=== PATIENT | male | born 1990 | race Caucasian/White ===

== ENCOUNTER 2019-05-23 03:28 | Emergency (ER) | payer SELFPAY ==
[~2019-05-23] VITALS: Ht 182.8 cm; Wt 138.6 kg
[~2019-05-23 03:28] MED LIST: AGM875T PO; FAMO-106 PO; FAMO20TA5 PO; LANS15CA PO; NAPR-243 PO; ONDA-42 SL; PRD20T PO; RNT150T PO; SUCR1TAB PO; SULF1TAB38 PO
[2019-05-23] MEDS ORDERED: RX-ONDANSETRON 4 MG ODT (ZOFRAN) PPK #4 PO STA (04:24)
[2019-05-23] MEDS ORDERED: ONDA4TAB11 PO (04:30)
--- NOTE | 2019-05-23 04:31 | ED Abdominal Pain ---
General Chief Complaint: Abdominal/GI Problems Stated Complaint: NAUSEA,FLUSHED,LIGHT HEADED,VOMITING Source of Information: Patient Exam Limitations: No Limitations History of Present Illness Date Seen by Provider: May 23, 2019 Time Seen by Provider: 04:14 Initial Comments Patient presents ER by private conveyance from work with chief complaint that about 2:00 in the morning he and some other coworkers ate some pizza from [employer] and within an hour or so all became sick with nausea vomiting and diarrhea. He was unable to complete his shift so his boss sent him here. Denies history of abdominal surgeries or scopes. He was told the past that he had GERD and possibly an ulcer but he did not complete the upper endoscopy. He is not having any fevers or chills. Allergies and Home Medications Allergies Coded Allergies: No Known Drug Allergies (Unverified , 02/03/11) Home Medications Lansoprazole 15 Mg Capsule., Unknown Dose PO DAILY, (Reported) Patient Home Medication List Home Medication List Reviewed: Yes Review of Systems Review of Systems Constitutional: No chills, No diaphoresis EENTM: No Blurred Vision, No Double Vision Respiratory: Denies Cough, Denies Orthopnea Cardiovascular: Denies Chest Pain, Denies Edema Gastrointestinal: See HPI; Denies Abdomen Distended; Abdominal Pain Genitourinary: Denies Burning, Denies Discharge Musculoskeletal: No back pain, No joint pain All Other Systems Reviewed Negative Unless Noted: Yes Past Pqfbokf-Gbdprg-Agtzeh Hx Patient Social History Alcohol Use: Occasionally Uses Recreational Drug Use: No Smoking Status: Current Everyday Smoker Recent Foreign Travel: No Contact w/Someone Who Travel: No Recent Hopitalizations: No Seasonal Allergies Seasonal Allergies: No Past Medical History Surgeries: No Orthopedic Respiratory: Yes Asthma Cardiac: No Neurological: No Genitourinary: No Gastrointestinal: Yes Gastroesophageal Reflux, Ulcer Musculoskeletal: Yes (CHRONIC LEFT KNEE PAIN) Endocrine: No Cancer: No Psychosocial: No Integumentary: No Blood Disorders: No Adverse Reaction/Blood Tranf: No Physical Exam Vital Signs Capillary Refill : Height/Weight/BMI Height: 6'0" Weight: 260lbs. oz. 117.646971io; BMI Method:Stated General Appearance: WD/WN, no apparent distress HEENT: PERRL/EOMI, pharynx normal Neck: full range of motion, normal inspection Respiratory: lungs clear, normal breath sounds, no respiratory distress, no accessory muscle use Cardiovascular: normal peripheral pulses, regular rate, rhythm Peripheral Pulses: 2+ Radial Pulses (R), 2+ Radial Pulses (L) Gastrointestinal: normal bowel sounds, non tender, soft, no organomegaly Neurologic/Psychiatric: alert, normal mood/affect, oriented x 3 Skin: normal color, warm/dry Progress/Results/Core Measures Results/Orders My Orders Orders - DICK MAIN Rx-Ondansetron Po (Rx-Zofran Po) (05/23/19 04:24) Progress Progress Note : Time: 04:27 Progress Note 3 people in eating the same food with similar symptoms all within an hour of eating the food sounds like it could be a preformed toxin. We offered to give him an IV, labs fluid for what sounds like potentially food poisoning. He declined and just wants some Zofran and a note to go home. He says he has antacids there that he can take. Departure Impression Primary Impression: Gastroenteritis and colitis, toxic Disposition: 01 HOME, SELF-CARE Condition: Stable Departure-Patient Inst. Decision time for Depature: 04:29 Referrals: NO,LOCAL PHYSICIAN (PCP/Family) Primary Care Physician Patient Instructions: Food Poisoning (DC) Add. Discharge Instructions: Typically does not last more than a day maybe 2. Left the diarrhea go. Drink lots of fluid. Ondansetron one tablet under the tongue every 6 hours as needed for nausea or vomiting. Return to work Saturday. All discharge instructions reviewed with patient and/or family. Voiced understanding. Scripts Ondansetron (Ondansetron Odt) 4 Mg Tab.rapdis 4 MG PO Q6H PRN for NAUSEA/VOMITING, #8 TAB 0 Refills Prov: DICK MAIN 05/23/19 Work/School Note: Work Release Form Date Seen in the Emergency Department: May 23, 2019 Return to Work: May 25, 2019 Restrictions: No Restrictions DICK MAIN May 23, 2019 04:31
[2019-05-23 04:43] VITALS: BP 154/103
== END 2019-05-23 04:44 | disposition home or self-care (01) ==
LOC: EDUNIT# 03:28 → ER 03:31
DX: A05.9 Bacterial foodborne intoxication, unspecified (principal); K52.1 Toxic gastroenteritis and colitis; K21.9 Gastro-esophageal reflux disease without esophagitis; F17.200 Nicotine dependence, unspecified, uncomplicated
CPT/HCPCS: 99283

== ENCOUNTER 2019-06-30 07:53 | Emergency (ER) | payer SELFPAY ==
[~2019-06-30] VITALS: Ht 182.8 cm; Wt 138.3 kg
[~2019-06-30 07:53] MED LIST changes: +ONDA4TAB11 PO
[2019-06-30 08:00] VITALS: BP 162/125
[2019-06-30] MEDS ORDERED: ANTACID SUSP 30 ML UDC (MYLANTA) ONE (08:09)
[2019-06-30] MEDS ORDERED: LIDOCAINE 2% VISCOUS 15 ML UDC ONE (08:10)
[2019-06-30] MEDS ORDERED: ANTACID SUSP 30 ML UDC (MYLANTA) PO ONE (08:15)
[2019-06-30] MEDS ORDERED: LIDOCAINE 2% VISCOUS 15 ML UDC PO ONE (08:15)
--- NOTE | 2019-06-30 08:42 | ED Chest Pain ---
General Chief Complaint: Cough/Cold/Flu Symptoms Stated Complaint: COUGH;CHEST CONGESTION Nursing Triage Note: pt amb to rm 10 with complaint of cough, chest tightness for one week. denies fever and sore throat. Nursing Sepsis Screen: No Definite Risk Source: patient Exam Limitations: no limitations History of Present Illness Date Seen by Provider: Jun 30, 2019 Time Seen by Provider: 08:01 Initial Comments This 29-year-old young man presents to the emergency room with complaints of chest pressure and tightness for the past week. The discomfort is constant and seems to be worse when he lies down at night. He is a smoker and has a chronic dry smoker's cough which has not increased. He denies any fever or shortness of breath. Pain is not worse with deep breathing or with exertion. He has no lower extremity symptoms. He does have history of GERD and takes omeprazole daily. He informs the nurse during triage that his heart rate will be high because he is anxious. Allergies and Home Medications Allergies Coded Allergies: No Known Drug Allergies (Unverified , 02/03/11) Home Medications Albuterol Sulfate 1 Puff Puff, 2 PUFF IH Q4H PRN for SHORTNESS OF BREATH 1 PUFF = 90 MCG Prescribed by: DANUTA MARLOW on 06/30/19 1036 Lansoprazole 15 Mg Capsule., Unknown Dose PO DAILY, (Reported) Ondansetron 4 Mg Tab.rapdis, 4 MG PO Q6H PRN for NAUSEA/VOMITING Prescribed by: DICK MAIN on 05/23/19 0430 Patient Home Medication List Home Medication List Reviewed: Yes Review of Systems Review of Systems Constitutional: no symptoms reported EENTM: No Symptoms Reported Respiratory: See HPI Cardiovascular: See HPI Gastrointestinal: No Symptoms Reported Genitourinary: No Symptoms Reported Musculoskeletal: no symptoms reported Skin: no symptoms reported Psychiatric/Neurological: No Symptoms Reported Endocrine: No Symptoms Reported Hematologic/Lymphatic: No Symptoms Reported Past Tjajopa-Wxcorv-Xbmpzq Hx Past Med/Social Hx: Reviewed Nursing Past Med/Soc Hx Patient Social History Alcohol Use: Occasionally Uses Recreational Drug Use: No (SMOKES 1/2 PPD) Smoking Status: Current Everyday Smoker Recent Foreign Travel: No Contact w/Someone Who Travel: No Recent Infectious Disease Expo: No Recent Hopitalizations: No Immunizations Up To Date Tetanus Booster (TDap): Unknown PED Vaccines UTD: Yes Seasonal Allergies Seasonal Allergies: No Past Medical History Surgeries: Yes Orthopedic Respiratory: Yes Asthma Cardiac: No Neurological: No Genitourinary: No Gastrointestinal: Yes Gastroesophageal Reflux, Ulcer Musculoskeletal: Yes (CHRONIC LEFT KNEE PAIN) Endocrine: No Cancer: No Psychosocial: No Integumentary: No Blood Disorders: No Adverse Reaction/Blood Tranf: No Physical Exam Vital Signs Vital Signs - First Documented Capillary Refill : Less Than 3 Seconds Height, Weight, BMI Height: 6'0" Weight: 260lbs. oz. 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 Norm as Tested, Other (anxious) Skin: Normal Color, Warm/Dry Progress/Results/Core Measures Results/Orders Lab Results Laboratory Tests Test 06/30/19 09:28 Range/Units White Blood Count 10.1 4.3-11.0 10^3/uL Red Blood Count 4.82 4.35-5.85 10^6/uL Hemoglobin 13.6 13.3-17.7 G/DL Hematocrit 42 40-54 % Mean Corpuscular Volume 87 80-99 FL Mean Corpuscular Hemoglobin 28 25-34 PG Mean Corpuscular Hemoglobin Concent 33 32-36 G/DL Red Cell Distribution Width 15.3 H 10.0-14.5 % Platelet Count 346 130-400 10^3/uL Mean Platelet Volume 8.7 7.4-10.4 FL Neutrophils (%) (Auto) 63 42-75 % Lymphocytes (%) (Auto) 25 12-44 % Monocytes (%) (Auto) 10 0-12 % Eosinophils (%) (Auto) 2 0-10 % Basophils (%) (Auto) 0 0-10 % Neutrophils # (Auto) 6.4 1.8-7.8 X 10^3 Lymphocytes # (Auto) 2.5 1.0-4.0 X 10^3 Monocytes # (Auto) 1.0 0.0-1.0 X 10^3 Eosinophils # (Auto) 0.2 0.0-0.3 10^3/uL Basophils # (Auto) 0.0 0.0-0.1 10^3/uL Prothrombin Time 13.1 12.2-14.7 SEC INR Comment 1.0 0.8-1.4 Activated Partial Thromboplast Time 27 24-35 SEC Sodium Level 137 135-145 MMOL/L Potassium Level 3.6 3.6-5.0 MMOL/L Chloride Level 100 98-107 MMOL/L Carbon Dioxide Level 20 L 21-32 MMOL/L Anion Gap 17 H 5-14 MMOL/L Blood Urea Nitrogen 9 7-18 MG/DL Creatinine 0.86 0.60-1.30 MG/DL Estimat Glomerular Filtration Rate > 60 BUN/Creatinine Ratio 10 Glucose Level 123 H 70-105 MG/DL Calcium Level 8.9 8.5-10.1 MG/DL Corrected Calcium 8.5 8.5-10.1 MG/DL Magnesium Level 1.9 1.6-2.4 MG/DL Total Bilirubin 0.4 0.1-1.0 MG/DL Aspartate Amino Transf (AST/SGOT) 33 5-34 U/L Alanine Aminotransferase (ALT/SGPT) 58 H 0-55 U/L Alkaline Phosphatase 68 40-136 U/L Myoglobin 22.3 10.0-92.0 NG/ML Troponin I < 0.028 <0.028 NG/ML Total Protein 7.8 6.4-8.2 GM/DL Albumin 4.5 3.2-4.5 GM/DL My Orders Orders - DANUTA ARROYO MD Lidocaine 2% Viscous 15 Ml (Xylocaine Vi (06/30/19 08:15) Antacid Suspension (Mylanta Suspension (06/30/19 08:15) Antacid Suspension (Mylanta Suspension (06/30/19 08:09) Lidocaine 2% Viscous 15 Ml (Xylocaine Vi (06/30/19 08:10) Cbc With Automated Diff (06/30/19 08:42) Magnesium (06/30/19 08:42) Chest 1 View, Ap/Pa Only (06/30/19 08:42) Ekg Tracing (06/30/19 08:42) Comprehensive Metabolic Panel (06/30/19 08:42) Myoglobin Serum (06/30/19 08:42) Protime With Inr (06/30/19 08:42) Partial Thromboplastin Time (06/30/19 08:42) O2 (06/30/19 08:42) Monitor-Rhythm Ecg Trace Only (06/30/19 08:42) Ed Iv/Invasive Line Start (06/30/19 08:42) Troponin I (06/30/19 08:42) Medications Given in ED Current Medications Medications Dose Ordered Sig/Jessica Route Start Time Stop Time Status Last Admin Dose Admin Al Hydrox/Mg Hydrox/Simethicone 30 ml ONCE ONCE PO 06/30/19 08:15 06/30/19 08:16 DC 06/30/19 08:18 30 ML Lidocaine HCl 15 ml ONCE ONCE PO 06/30/19 08:15 06/30/19 08:16 DC 06/30/19 08:17 15 ML Vital Signs/I&O 06/30/19 06/30/19 08:00 08:00 Temp 36.8 Pulse 108 Resp 20 B/P (MAP) 162/125 (137) Pulse Ox 100 O2 Delivery Room Air Room Air Blood Pressure Mean: 137 Progress Progress Note : Progress Note GI cocktail did help his discomfort some. Patient was fairly anxious, especially given family circumstances and the coronavirus pandemic. We discussed his anxiety. Heart rate and pressure improved with just rest. Fol low-up with his primary care provider was recommended. Since he has a history of asthma when he was younger, and albuterol inhaler was prescribed to trial. He was also strongly advised to taper down on his smoking and quickly work toward quitting. Initial ECG Impression Date: Jun 30, 2019 Initial ECG Impression Time: 09:09 Initial ECG Rate: 110 Initial ECG Rhythm: S.Tach Initial ECG Intervals: Normal Initial ECG Impression: Normal Comment Mild sinus tachycardia with no ST elevation or depression. No abnormal intervals or axis deviation. Diagnostic Imaging Diagonstic Imaging: Xray Plain Films/CT/US/NM/MRI: chest Comments Chest x-ray viewed by me. Report reviewed. See report below: NAME: [facility] REC#: [id number] PT STATUS: REG ER : 1990 PHYSICIAN: DANUTA ARROYO MD ADMIT DATE: 06/30/19/ER Draft Date of Exam:06/30/19 CHEST 1 VIEW, AP/PA ONLY INDICATION: Cough, chest tightness FINDINGS: The lungs clear. The heart and vessels normal. No failure, effusion or pneumothorax. IMPRESSION: No acute appearing abnormality. Dictated on workstation # [id number] Dict: 06/30/19922 Trans: 06/30/19923 [place]NER [id number] Interpreted by: ROSEANNE PIERCE Departure Impression Primary Impression: Atypical chest pain Disposition: HOME, SELF-CARE Condition: Stable Departure-Patient Inst. Decision time for Depature: 10:31 Referrals: NO,LOCAL PHYSICIAN (PCP/Family) Primary Care Physician Patient Instructions: Chest Pain That Is Not Caused by the Heart (DC) Add. Discharge Instructions: Follow-up with your primary care provider soon as possible. You may try all the inhaler as prescribed even your history of asthma. Start tapering down on your smoking and work toward quitting quickly. Continue taking omeprazole daily. You may additionally help acid reflux by avoiding the following: Eating large meals, eating close to bedtime, caffeine, carbonation, citrus fruits and juices, tomato products, tobacco, alcohol, spicy foods, fatty or greasy foods, mints, chocolate, or anything else you know irritates your stomach. All discharge instructions reviewed with patient and/or family. Voiced understanding. Scripts Albuterol Sulfate (PROAIR HFA) 1 Puff Puff 2 PUFF IH Q4H PRN for SHORTNESS OF BREATH, #1 PUFF 1 PUFF = 90 MCG Prov: DANUTA ARROYO MD 06/30/19 DANUTA ARROYO MD Jun 30, 2019 08:42
--- NOTE | 2019-06-30 09:25 | Diagnostic Imaging Report ---
INDICATION: Cough, chest tightness FINDINGS: The lungs clear. The heart and vessels normal. No failure, effusion or pneumothorax. IMPRESSION: No acute appearing abnormality. Dictated by: Dictated on workstation # [id number]
[2019-06-30 09:34] LABS: BASOPHILS % (AUTO) 0 % (0-10); EOSINOPHILS # (AUTO) 0.2 10^3/uL (0.0-0.3); EOSINOPHILS % (AUTO) 2 % (0-10); HEMATOCRIT 42 % (40-54); HEMOGLOBIN 13.6 G/DL (13.3-17.7); LYMPHOCYTES # (AUTO) 2.5 X 10^3 (1.0-4.0); LYMPHOCYTES % (AUTO) 25 % (12-44); MEAN CORPUSCULAR HEMOGLOBIN 28 PG (25-34); MEAN CORPUSCULAR HGB CONC 33 G/DL (32-36); MEAN CORPUSCULAR VOLUME 87 FL (80-99); MEAN PLATELET VOLUME 8.7 FL (7.4-10.4); MONOCYTES % (AUTO) 10 % (0-12); NEUTROPHILS # (AUTO) 6.4 X 10^3 (1.8-7.8); NEUTROPHILS % (AUTO) 63 % (42-75); PLATELET COUNT 346 10^3/uL (130-400); RED CELL DISTRIBUTION WIDTH 15.3 % (10.0-14.5); WHITE BLOOD COUNT 10.1 10^3/uL (4.3-11.0)
[2019-06-30 09:45] LABS: PROTHROMBIN TIME PATIENT 13.1 SEC (12.2-14.7)
[2019-06-30 09:56] LABS: ALANINE AMINOTRANSFERASE 58 U/L (0-55); ALBUMIN 4.5 GM/DL (3.2-4.5); ALKALINE PHOSPHATASE 68 U/L (40-136); BILIRUBIN,TOTAL 0.4 MG/DL (0.1-1.0); BUN/CREATININE RATIO 10; CALCIUM 8.9 MG/DL (8.5-10.1); CARBON DIOXIDE 20 MMOL/L (21-32); CHLORIDE 100 MMOL/L (98-107); CREATININE SERUM 0.86 MG/DL (0.60-1.30); GFR ESTIMATED > 60; GLUCOSE 123 MG/DL (70-105); MAGNESIUM 1.9 MG/DL (1.6-2.4); POTASSIUM 3.6 MMOL/L (3.6-5.0); SODIUM 137 MMOL/L (135-145); TOTAL PROTEIN 7.8 GM/DL (6.4-8.2)
[2019-06-30] MEDS ORDERED: RT-ALBUINH IH (10:36)
== END 2019-06-30 10:44 | disposition home or self-care (01) ==
LOC: EDUNIT# 07:53 → ER 07:54
DX: R07.89 Other chest pain (principal); K21.9 Gastro-esophageal reflux disease without esophagitis; J45.909 Unspecified asthma, uncomplicated; F17.210 Nicotine dependence, cigarettes, uncomplicated
CPT/HCPCS: 36415; 71045; 80053; 83735; 83874; 84484; 85025; 85610; 85730; 93005; 93041

== ENCOUNTER 2019-11-08 12:27 | Emergency (ER) | payer SELFPAY ==
[~2019-11-08] VITALS: Ht 183 cm; Wt 138.3 kg
[~2019-11-08 12:27] MED LIST changes: +RT-ALBUINH IH
[2019-11-08] MEDS ORDERED: NS IV 500 ML 500 ML IV SCH ×2 (13:00→13:45)
[2019-11-08] MEDS ORDERED: LORazepam INJ 2 MG/ML (ATIVAN) VIAL IVP PRN (13:00)
[2019-11-08] MEDS ORDERED: ASPIRIN 81 MG CHEW (CHILDREN'S ASA) PO ONE (13:00)
[2019-11-08 13:03] LABS: BASOPHILS # (AUTO) 0.1 10^3/uL (0.0-0.1); BASOPHILS % (AUTO) 1 % (0-10); EOSINOPHILS # (AUTO) 0.2 10^3/uL (0.0-0.3); EOSINOPHILS % (AUTO) 2 % (0-10); HEMATOCRIT 42 % (40-54); LYMPHOCYTES # (AUTO) 3.1 X 10^3 (1.0-4.0); LYMPHOCYTES % (AUTO) 34 % (12-44); MEAN CORPUSCULAR HEMOGLOBIN 29 PG (25-34); MEAN CORPUSCULAR HGB CONC 33 G/DL (32-36); MEAN CORPUSCULAR VOLUME 88 FL (80-99); MEAN PLATELET VOLUME 9.2 FL (7.4-10.4); MONOCYTES # (AUTO) 0.9 X 10^3 (0.0-1.0); MONOCYTES % (AUTO) 9 % (0-12); NEUTROPHILS % (AUTO) 54 % (42-75); PLATELET COUNT 404 10^3/uL (130-400); RED CELL DISTRIBUTION WIDTH 14.7 % (10.0-14.5); WHITE BLOOD COUNT 9.2 10^3/uL (4.3-11.0)
--- NOTE | 2019-11-08 13:05 | ED Chest Pain ---
General Chief Complaint: Chest Pain Stated Complaint: CHEST PAIN / LEFT ARM TINGLING Nursing Triage Note: Patient reports chest pain starting 1 hour COSTUME MISTRESS when he went to lay down. radiates to L arm Nursing Sepsis Screen: No Definite Risk Source: patient Exam Limitations: no limitations History of Present Illness Date Seen by Provider: Nov 08, 2019 Time Seen by Provider: 12:36 Initial Comments Laid down to sleep at 1100 this morning when he felt palpitations and pressure in his chest. States he became very anxious fearing he was having a heart attack. He additionally had numbness down his left arm. Admits to drinking a liter of Vodka last night. Drinks a liter of Vodka usually twice a week on his days off. Reports history of panic attack. Reports chest pressure and numbness have reduced since ED arrival. Reports no significant cardiac history. Denies cough, shortness of breath, nausea/vomiting, or diaphoresis. Timing/Duration: 1 hour Severity/Quality: moderate, pressure Location: central Radiation: no radiation Activities at Onset: none Prior CP/Workup: no prior chest pain ASA po COSTUME MISTRESS: No NTG SL COSTUME MISTRESS: No Associated Symptoms: denies symptoms Allergies and Home Medications Allergies Coded Allergies: No Known Drug Allergies (Unverified , 02/03/11) Home Medications Albuterol Sulfate 1 Puff Puff, 2 PUFF IH Q4H PRN for SHORTNESS OF BREATH 1 PUFF = 90 MCG Prescribed by: DANUTA MARLOW on 06/30/19 1036 Lansoprazole 15 Mg Capsule.dr, Unknown Dose PO DAILY, (Reported) Ondansetron 4 Mg Tab.rapdis, 4 MG PO Q6H PRN for NAUSEA/VOMITING Prescribed by: DICK MAIN on 05/23/19 0430 Patient Home Medication List Home Medication List Reviewed: Yes Review of Systems Review of Systems Constitutional: see HPI EENTM: No Symptoms Reported Respiratory: No Symptoms Reported Cardiovascular: See HPI Gastrointestinal: No Symptoms Reported Genitourinary: No Symptoms Reported Musculoskeletal: no symptoms reported Skin: no symptoms reported Psychiatric/Neurological: No Symptoms Reported Endocrine: No Symptoms Reported Hematologic/Lymphatic: No Symptoms Reported Past Avhbiib-Lowmsc-Tmalzq Hx Patient Social History Alcohol Use: Occasionally Uses Alcohol Beverage of Choice: Vodka Recreational Drug Use: No Smoking Status: Current Everyday Smoker Recent Foreign Travel: No Contact w/Someone Who Travel: No Recent Infectious Disease Expo: No Recent Hopitalizations: No Immunizations Up To Date Tetanus Booster (TDap): Unknown PED Vaccines UTD: Yes Seasonal Allergies Seasonal Allergies: No Past Medical History Surgeries: Yes Orthopedic Respiratory: Yes Asthma Cardiac: No Neurological: No Genitourinary: No Gastrointestinal: Yes Gastroesophageal Reflux, Ulcer Musculoskeletal: Yes (CHRONIC LEFT KNEE PAIN) Endocrine: No Cancer: No Psychosocial: No Integumentary: No Blood Disorders: No Adverse Reaction/Blood Tranf: No Physical Exam Vital Signs Vital Signs - First Documented 11/08/19 12:36 Temp 36.2 Pulse 142 Resp 21 B/P (MAP) 194/110 (138) Pulse Ox 97 O2 Delivery Room Air Capillary Refill : Less Than 3 Seconds Height, Weight, BMI Height: 6'0" Weight: 260lbs. oz. 117.454944rj; 41.00 BMI Method:Stated General Appearance: Anxious, Mild Distress HEENT: PERRL/EOMI, Normal ENT Inspection Neck: Full Range of Motion, Normal Inspection Respiratory: Chest Non Tender, Lungs Clear, Normal Breath Sounds, No Respiratory Distress Cardiovascular: Regular Rate, Rhythm, No Murmur, Normal Peripheral Pulses, Tachycardia Gastrointestinal: Normal Bowel Sounds, Non Tender, Soft Extremity: Normal Inspection, Normal Range of Motion Neurologic/Psychiatric: Alert, Oriented x3, No Motor/Sensory Deficits Skin: Normal Color, Diaphoresis, Other Progress/Results/Core Measures Results/Orders Lab Results Laboratory Tests Test 11/08/19 12:48 11/08/19 15:00 Range/Units White Blood Count 9.2 4.3-11.0 10^3/uL Red Blood Count 4.80 4.35-5.85 10^6/uL Hemoglobin 14.0 13.3-17.7 G/DL Hematocrit 42 40-54 % Mean Corpuscular Volume 88 80-99 FL Mean Corpuscular Hemoglobin 29 25-34 PG Mean Corpuscular Hemoglobin Concent 33 32-36 G/DL Red Cell Distribution Width 14.7 H 10.0-14.5 % Platelet Count 404 H 130-400 10^3/uL Mean Platelet Volume 9.2 7.4-10.4 FL Neutrophils (%) (Auto) 54 42-75 % Lymphocytes (%) (Auto) 34 12-44 % Monocytes (%) (Auto) 9 0-12 % Eosinophils (%) (Auto) 2 0-10 % Basophils (%) (Auto) 1 0-10 % Neutrophils # (Auto) 5.0 1.8-7.8 X 10^3 Lymphocytes # (Auto) 3.1 1.0-4.0 X 10^3 Monocytes # (Auto) 0.9 0.0-1.0 X 10^3 Eosinophils # (Auto) 0.2 0.0-0.3 10^3/uL Basophils # (Auto) 0.1 0.0-0.1 10^3/uL Prothrombin Time 14.2 12.2-14.7 SEC INR Comment 1.1 0.8-1.4 Activated Partial Thromboplast Time 27 24-35 SEC Sodium Level 140 135-145 MMOL/L Potassium Level 3.6 3.6-5.0 MMOL/L Chloride Level 104 98-107 MMOL/L Carbon Dioxide Level 20 L 21-32 MMOL/L Anion Gap 16 H 5-14 MMOL/L Blood Urea Nitrogen 5 L 7-18 MG/DL Creatinine 0.85 0.60-1.30 MG/DL Estimat Glomerular Filtration Rate > 60 BUN/Creatinine Ratio 6 Glucose Level 258 H 70-105 MG/DL Calcium Level 9.2 8.5-10.1 MG/DL Corrected Calcium 9.0 8.5-10.1 MG/DL Magnesium Level 1.5 L 1.6-2.4 MG/DL Total Bilirubin 0.2 0.1-1.0 MG/DL Aspartate Amino Transf (AST/SGOT) 42 H 5-34 U/L Alanine Aminotransferase (ALT/SGPT) 77 H 0-55 U/L Alkaline Phosphatase 77 40-136 U/L Myoglobin 16.4 10.0-92.0 NG/ML Troponin I < 0.028 < 0.028 <0.028 NG/ML Total Protein 7.9 6.4-8.2 GM/DL Albumin 4.3 3.2-4.5 GM/DL My Orders Orders - HOLLAND ARRIAGA RN FIRST ASSIST Cbc With Automated Diff (11/08/19 12:52) Magnesium (11/08/19 12:52) Chest 1 View, Ap/Pa Only (11/08/19 12:52) Ekg Tracing (11/08/19 12:52) Comprehensive Metabolic Panel (11/08/19 12:52) Myoglobin Serum (11/08/19 12:52) Protime With Inr (11/08/19 12:52) Partial Thromboplastin Time (11/08/19 12:52) O2 (11/08/19 12:52) Monitor-Rhythm Ecg Trace Only (11/08/19 12:52) Ed Iv/Invasive Line Start (11/08/19 12:52) Troponin I (11/08/19 12:52) Aspirin Chewable Tablet (Baby Aspirin Ch (11/08/19 13:00) Ns Iv 500 Ml (Sodium Chloride 0.9%) (11/08/19 13:00) Lorazepam Injection (Ativan Injection) (11/08/19 13:00) Troponin I (11/08/19 14:48) Ns Iv 500 Ml (Sodium Chloride 0.9%) (11/08/19 13:45) Ondansetron Injection (Zofran Injectio (11/08/19 15:00) Medications Given in ED Current Medications Medications Dose Ordered Sig/Jessica Route Start Time Stop Time Status Last Admin Dose Admin Aspirin 324 mg ONCE ONCE PO 11/08/19 13:00 11/08/19 13:01 DC 11/08/19 13:05 324 MG Lorazepam 0.5 mg ONCE PRN IVP 11/08/19 13:00 11/08/19 13:05 0.5 MG Ondansetron HCl 4 mg ONCE ONCE IVP 11/08/19 15:00 11/08/19 15:01 DC 11/08/19 15:13 4 MG Vital Signs/I&O 11/08/19 12:36 Temp 36.2 Pulse 142 Resp 21 B/P (MAP) 194/110 (138) Pulse Ox 97 O2 Delivery Room Air Blood Pressure Mean: 138 Departure Impression Primary Impression: Panic attack Additional Impression: Chest pain Disposition: HOME, SELF-CARE Condition: Improved Departure-Patient Inst. Referrals: NO,LOCAL PHYSICIAN (PCP/Family) Primary Care Physician Patient Instructions: Chest Pain That Is Not Caused by the Heart (DC) Add. Discharge Instructions: Plan: 1. Establish with primary care provider at [facility]. 2. Drink plenty of fluids, avoid using any additional alcohol. 3. Return for any new or concerning symptoms. All discharge instructions reviewed with patient and/or family. Voiced understanding. HOLLAND ARRIAGA RN FIRST ASSIST Nov 08, 2019 13:05
[2019-11-08 13:06] LABS: ALBUMIN 4.3 GM/DL (3.2-4.5); CHLORIDE 104 MMOL/L (98-107); POTASSIUM 3.6 MMOL/L (3.6-5.0); SODIUM 140 MMOL/L (135-145)
[2019-11-08 13:07] LABS: CALCIUM 9.2 MG/DL (8.5-10.1)
[2019-11-08 13:08] LABS: GLUCOSE 258 MG/DL (70-105)
[2019-11-08 13:09] LABS: INR 1.1 (0.8-1.4); PROTHROMBIN TIME PATIENT 14.2 SEC (12.2-14.7); TOTAL PROTEIN 7.9 GM/DL (6.4-8.2)
[2019-11-08 13:10] LABS: BILIRUBIN,TOTAL 0.2 MG/DL (0.1-1.0); CARBON DIOXIDE 20 MMOL/L (21-32)
[2019-11-08 13:12] LABS: ALKALINE PHOSPHATASE 77 U/L (40-136); CREATININE SERUM 0.85 MG/DL (0.60-1.30); GFR ESTIMATED > 60
[2019-11-08 13:13] LABS: BUN/CREATININE RATIO 6
[2019-11-08 13:15] LABS: ALANINE AMINOTRANSFERASE 77 U/L (0-55); MAGNESIUM 1.5 MG/DL (1.6-2.4)
--- NOTE | 2019-11-08 13:31 | Diagnostic Imaging Report ---
Portable erect AP chest at 1:17. Indication: Chest pain The heart size is within normal limits and stable when compared to 06/30/2019. The lungs are clear. There is no evidence for failure, pneumonia or for pleural effusion. The mediastinum is not widened. The osseous structures are intact. Impression: There is no evidence for active disease. Dictated by: Dictated on workstation # [id number]
[2019-11-08] MEDS ORDERED: ONDANSETRON 4 MG/2 ML (SDV) Z0FRAN IVP ONE (15:00)
[2019-11-08 15:41] VITALS: BP 148/91
[2019-11-09] MEDS ORDERED: CHLO25CA10 PO (07:49)
== END 2019-11-08 15:39 | disposition home or self-care (01) ==
LOC: EDUNIT# 12:27 → ER 12:28
DX: F41.0 Panic disorder [episodic paroxysmal anxiety] (principal); R07.89 Other chest pain; J45.909 Unspecified asthma, uncomplicated; K21.9 Gastro-esophageal reflux disease without esophagitis; F17.200 Nicotine dependence, unspecified, uncomplicated
CPT/HCPCS: 36415; 71045; 80053; 83735; 83874; 84484; 85025; 85610; 85730; 93005; 93041

== ENCOUNTER 2019-11-09 06:16 | Emergency (ER) | payer SELFPAY ==
[~2019-11-09] VITALS: Ht 183 cm; Wt 141.5 kg
--- NOTE | 2019-11-09 06:26 | ED General ---
General Chief Complaint: Chest Pain Stated Complaint: CP, LBP, NECK PAIN Source of Information: Patient Exam Limitations: No Limitations History of Present Illness Date Seen by Provider: Nov 09, 2019 Time Seen by Provider: 06:25 Initial Comments 29-year-old male presents with "palpitations", vague chest pain, lower back pain. Patient's chest pain started yesterday. Patient was seen in the ER yesterday with a negative evaluation. That time patient was very anxious and admitted to drinking a liter of vodka tonight before. Patient reports he drinks a liter of vodka at least 2 times a week. Patient comes in today because he still has a little bit of vague chest pain, bilateral shoulder pain and lower back pain. He denies any shortness of breath. He does have a prior history of being seen for vague chest pain. He has a history of reflux in addition to his alcohol use. Patient also used to drink a couple energy drinks every night. Patient denies any abdominal pain, nausea vomiting diaphoresis shortness of breath. Patient is very anxious and notes his blood pressure was elevated but is also elevated yesterday and then came down as his anxiety decreased. Patient denies any urinary symptoms. Allergies and Home Medications Allergies Coded Allergies: No Known Drug Allergies (Unverified , 02/03/11) Home Medications Albuterol Sulfate 1 Puff Puff, 2 PUFF IH Q4H PRN for SHORTNESS OF BREATH 1 PUFF = 90 MCG Prescribed by: DANUTA MARLOW on 06/30/19 1036 Lansoprazole 15 Mg Capsule., Unknown Dose PO DAILY, (Reported) Ondansetron 4 Mg Tab.rapdis, 4 MG PO Q6H PRN for NAUSEA/VOMITING Prescribed by: DICK MAIN on 05/23/19 0430 Patient Home Medication List Home Medication List Reviewed: Yes Review of Systems Review of Systems Constitutional: No chills, No fever, No weakness EENTM: no symptoms reported Respiratory: No cough, No dyspnea on exertion, No short of breath Cardiovascular: see HPI, chest pain; No edema; palpitations Gastrointestinal: No abdominal pain, No nausea, No vomiting Genitourinary: no symptoms reported Musculoskeletal: see HPI Skin: no symptoms reported Psychiatric/Neurological: No Symptoms Reported Hematologic/Lymphatic: No Symptoms Reported Immunological/Allergic: no symptoms reported Past Lmikuwo-Bedlac-Vgkrip Hx Past Med/Social Hx: Reviewed Nursing Past Med/Soc Hx Patient Social History Alcohol Beverage of Choice: Vodka Recent Foreign Travel: No Contact w/Someone Who Travel: No Recent Hopitalizations: No Immunizations Up To Date Tetanus Booster (TDap): Unknown PED Vaccines UTD: Yes Seasonal Allergies Seasonal Allergies: No Past Medical History Surgeries: Yes Orthopedic Respiratory: Yes Asthma Cardiac: No Neurological: No Genitourinary: No Gastrointestinal: Yes Gastroesophageal Reflux, Ulcer Musculoskeletal: Yes (CHRONIC LEFT KNEE PAIN) Endocrine: No Cancer: No Psychosocial: No Integumentary: No Blood Disorders: No Adverse Reaction/Blood Tranf: No Physical Exam Vital Signs Vital Signs - First Documented 11/09/19 06:25 Temp 36.6 Pulse 114 Resp 20 B/P (MAP) 190/103 (132) O2 Delivery Room Air Capillary Refill : Height, Weight, BMI Height: 6'0" Weight: 260lbs. oz. 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, 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 Norm as Tested Skin: Normal Color, Warm/Dry Progress/Results/Core Measures Suspected Sepsis SIRS Temperature: Pulse: Respiratory Rate: Laboratory Tests 11/09/19 06:28: White Blood Count 10.8 Blood Pressure / Mean: Laboratory Tests 11/09/19 06:28: Creatinine 0.85, Platelet Count 394, Total Bilirubin 0.4 Results/Orders Lab Results Laboratory Tests Test 11/09/19 06:28 Range/Units White Blood Count 10.8 4.3-11.0 10^3/uL Red Blood Count 4.67 4.35-5.85 10^6/uL Hemoglobin 13.6 13.3-17.7 G/DL Hematocrit 41 40-54 % Mean Corpuscular Volume 89 80-99 FL Mean Corpuscular Hemoglobin 29 25-34 PG Mean Corpuscular Hemoglobin Concent 33 32-36 G/DL Red Cell Distribution Width 14.5 10.0-14.5 % Platelet Count 394 130-400 10^3/uL Mean Platelet Volume 9.2 7.4-10.4 FL Neutrophils (%) (Auto) 68 42-75 % Lymphocytes (%) (Auto) 23 12-44 % Monocytes (%) (Auto) 8 0-12 % Eosinophils (%) (Auto) 1 0-10 % Basophils (%) (Auto) 0 0-10 % Neutrophils # (Auto) 7.4 1.8-7.8 X 10^3 Lymphocytes # (Auto) 2.4 1.0-4.0 X 10^3 Monocytes # (Auto) 0.9 0.0-1.0 X 10^3 Eosinophils # (Auto) 0.1 0.0-0.3 10^3/uL Basophils # (Auto) 0.0 0.0-0.1 10^3/uL D-Dimer < 0.27 0.00-0.49 UG/ML Urine Color YELLOW Urine Clarity CLEAR Urine pH 6.0 5-9 Urine Specific [place] >=1.030 1.016-1.022 Urine Protein 1+ H NEGATIVE Urine Glucose (UA) 1+ H NEGATIVE Urine Ketones TRACE H NEGATIVE Urine Nitrite NEGATIVE NEGATIVE Urine Bilirubin NEGATIVE NEGATIVE Urine Urobilinogen 0.2 < = 1.0 MG/DL Urine Leukocyte Esterase NEGATIVE NEGATIVE Urine RBC (Auto) NEGATIVE NEGATIVE Urine RBC NONE /HPF Urine WBC NONE /HPF Urine Crystals NONE /LPF Urine Bacteria NEGATIVE /HPF Urine Casts NONE /LPF Urine Mucus SMALL H /LPF Urine Culture Indicated NO Sodium Level 136 135-145 MMOL/L Potassium Level 3.8 3.6-5.0 MMOL/L Chloride Level 101 98-107 MMOL/L Carbon Dioxide Level 22 21-32 MMOL/L Anion Gap 13 5-14 MMOL/L Blood Urea Nitrogen 10 7-18 MG/DL Creatinine 0.85 0.60-1.30 MG/DL Estimat Glomerular Filtration Rate > 60 BUN/Creatinine Ratio 12 Glucose Level 189 H 70-105 MG/DL Calcium Level 9.3 8.5-10.1 MG/DL Corrected Calcium 9.0 8.5-10.1 MG/DL Total Bilirubin 0.4 0.1-1.0 MG/DL Aspartate Amino Transf (AST/SGOT) 37 H 5-34 U/L Alanine Aminotransferase (ALT/SGPT) 70 H 0-55 U/L Alkaline Phosphatase 70 40-136 U/L Troponin I < 0.028 <0.028 NG/ML B-Type Natriuretic Peptide 12.2 <100.0 PG/ML Total Protein 8.0 6.4-8.2 GM/DL Albumin 4.4 3.2-4.5 GM/DL Lipase 19 8-78 U/L Thyroid Stimulating Hormone (TSH) 2.49 0.35-4.94 UIU/ML Urine Opiates Screen NEGATIVE NEGATIVE Urine Oxycodone Screen NEGATIVE NEGATIVE Urine Methadone Screen NEGATIVE NEGATIVE Urine Propoxyphene Screen NEGATIVE NEGATIVE Urine Barbiturates Screen NEGATIVE NEGATIVE Ur Tricyclic Antidepressants Screen NEGATIVE NEGATIVE Urine Phencyclidine Screen NEGATIVE NEGATIVE Urine Amphetamines Screen NEGATIVE NEGATIVE Urine Methamphetamines Screen NEGATIVE NEGATIVE Urine Benzodiazepines Screen POSITIVE H NEGATIVE Urine Cocaine Screen NEGATIVE NEGATIVE Urine Cannabinoids Screen NEGATIVE NEGATIVE Serum Alcohol < 10 <10 MG/DL My Orders Orders - MOTT,CAROL L DO Alcohol (11/09/19 06:31) BNP (11/09/19 06:31) Cbc With Automated Diff (11/09/19 06:31) Comprehensive Metabolic Panel (11/09/19 06:31) Fibrin Degradation Products (11/09/19 06:31) Drug Screen Stat (Urine) (11/09/19 06:31) Lipase (11/09/19 06:31) Troponin I (11/09/19 06:31) Ua Culture If Indicated (11/09/19 06:31) Thyroid Stimulating Hormone (11/09/19 06:31) Chest 1 View, Ap/Pa Only (11/09/19 06:31) Vital Signs/I&O 11/09/19 11/09/19 06:25 06:25 Temp 36.6 Pulse 114 Resp 20 B/P (MAP) 190/103 (132) O2 Delivery Room Air Room Air Capillary Refill : Progress Note : Time: 07:45 Progress Note Patient admits to drinking a liter a day for at least 4 days in a row prior to not have any yesterday and today. His symptoms are very consistent with minor withdrawal symptoms. I will provide him with a prescription for Marlon Marie. Patient is very interested in trying to quit. He has an appointment on Saturday with [facility] which I encouraged him to keep. Patient stable will be discharged home ECG Initial ECG Impression Date: Nov 09, 2019 Initial ECG Impression Time: 06:28 Initial ECG Rhythm: S.Tach Initial ECG Intervals: Normal Initial ECG Impression: Nonspecific Changes Diagnostic Imaging Diagonstic Imaging: Xray Plain Films/CT/US/NM/MRI: chest Comments [facility]. [place], [place] NAME: CHANEL IKNG [facility] REC#: [id number] PT STATUS: REG ER : 1990 PHYSICIAN: CAROL MOTT DO ADMIT DATE: 11/09/19/ER Draft Date of Exam:11/09/19 CHEST 1 VIEW, AP/PA ONLY INDICATION: Chest pain. TECHNIQUE: Single view chest 6:53 AM. CORRELATION STUDY: 11/08/2019 FINDINGS: The heart size, mediastinal configuration and pulmonary vascularity are within normal limits. The lungs are clear with no consolidating infiltrate. There is no significant effusion or pneumothorax. IMPRESSION: 1. Negative for acute abnormality of the chest. Reviewed: Reviewed by Me, Reviewed/Discussed Departure Impression Primary Impression: Alcohol withdrawal Qualified Codes: F10.230 - Alcohol dependence with withdrawal, uncomplicated Additional Impression: Anxiety Disposition: 01 HOME, SELF-CARE Condition: Stable Departure-Patient Inst. Referrals: NO,LOCAL PHYSICIAN (PCP/Family) Primary Care Physician Patient Instructions: Anxiety, Adult (DC), Alcohol Abuse and Alcoholism (DC), Alcohol Use - When Is Drinking a Problem?, Alcohol Withdrawal Add. Discharge Instructions: Please keep your appointment with [facility] on Saturday All discharge instructions reviewed with patient and/or family. Voiced understanding. CAROL MOTT DO Nov 09, 2019 06:25
[2019-11-09 06:39] LABS: BILIRUBIN,URINE NEGATIVE (NEGATIVE); CLARITY,URINE CLEAR; COLOR,URINE YELLOW; GLUCOSE, URINE (UA) 1+ (NEGATIVE); KETONES,URINE TRACE (NEGATIVE); LEUKOCYTE ESTERASE ,URINE NEGATIVE (NEGATIVE); NITRITE,URINE NEGATIVE (NEGATIVE); PROTEIN,URINE 1+ (NEGATIVE)
[2019-11-09 06:42] LABS: BASOPHILS % (AUTO) 0 % (0-10); EOSINOPHILS # (AUTO) 0.1 10^3/uL (0.0-0.3); EOSINOPHILS % (AUTO) 1 % (0-10); HEMATOCRIT 41 % (40-54); HEMOGLOBIN 13.6 G/DL (13.3-17.7); LYMPHOCYTES # (AUTO) 2.4 X 10^3 (1.0-4.0); LYMPHOCYTES % (AUTO) 23 % (12-44); MEAN CORPUSCULAR HEMOGLOBIN 29 PG (25-34); MEAN CORPUSCULAR HGB CONC 33 G/DL (32-36); MEAN CORPUSCULAR VOLUME 89 FL (80-99); MEAN PLATELET VOLUME 9.2 FL (7.4-10.4); MONOCYTES # (AUTO) 0.9 X 10^3 (0.0-1.0); MONOCYTES % (AUTO) 8 % (0-12); NEUTROPHILS # (AUTO) 7.4 X 10^3 (1.8-7.8); NEUTROPHILS % (AUTO) 68 % (42-75); PLATELET COUNT 394 10^3/uL (130-400); RED CELL DISTRIBUTION WIDTH 14.5 % (10.0-14.5); WHITE BLOOD COUNT 10.8 10^3/uL (4.3-11.0)
[2019-11-09 06:47] LABS: BACTERIA,URINE NEGATIVE /HPF
[2019-11-09 06:50] LABS: ALBUMIN 4.4 GM/DL (3.2-4.5)
[2019-11-09 06:51] LABS: CHLORIDE 101 MMOL/L (98-107); POTASSIUM 3.8 MMOL/L (3.6-5.0); SODIUM 136 MMOL/L (135-145)
[2019-11-09 06:52] LABS: CALCIUM 9.3 MG/DL (8.5-10.1)
[2019-11-09 06:53] LABS: AMPHETAMINE SCREEN, URINE NEGATIVE (NEGATIVE); BARBITURATE SCREEN URINE NEGATIVE (NEGATIVE); BENZODIAZEPINES SCREEN URINE POSITIVE (NEGATIVE); CANNABINOID SCREEN, URINE NEGATIVE (NEGATIVE); COCAINE SCREEN URINE NEGATIVE (NEGATIVE); GLUCOSE 189 MG/DL (70-105); METHADONE STAT NEGATIVE (NEGATIVE); METHAMPHETAMINE SCREEN URINE S NEGATIVE (NEGATIVE); OPIATE SCREEN URINE NEGATIVE (NEGATIVE); OXYCODONE STAT NEGATIVE (NEGATIVE); PROPOXYPHENE STAT NEGATIVE (NEGATIVE); TRICYCLIC ANTIDEPRESSANTS SCRE NEGATIVE (NEGATIVE)
[2019-11-09 06:54] LABS: CARBON DIOXIDE 22 MMOL/L (21-32)
[2019-11-09 06:55] LABS: BILIRUBIN,TOTAL 0.4 MG/DL (0.1-1.0)
--- NOTE | 2019-11-09 06:56 | Diagnostic Imaging Report ---
INDICATION: Chest pain. TECHNIQUE: Single view chest 6:53 AM. CORRELATION STUDY: 11/08/2019 FINDINGS: The heart size, mediastinal configuration and pulmonary vascularity are within normal limits. The lungs are clear with no consolidating infiltrate. There is no significant effusion or pneumothorax. IMPRESSION: 1. Negative for acute abnormality of the chest. Dictated by: Dictated on workstation # [id number]
[2019-11-09 06:57] LABS: ALKALINE PHOSPHATASE 70 U/L (40-136); CREATININE SERUM 0.85 MG/DL (0.60-1.30); GFR ESTIMATED > 60
[2019-11-09 06:58] LABS: BUN/CREATININE RATIO 12
[2019-11-09 07:00] LABS: ALANINE AMINOTRANSFERASE 70 U/L (0-55); LIPASE 19 U/L (8-78)
--- NOTE | 2019-11-09 07:10 | NUR ---
Pt reports to this nurse drinking 1 L of hard liquor per day on days off. Pt reports just drinking a L per day for the last four days. Pt reports abruptly stopping. Pt advised about risks of heavy ETOH use and sudden cessation. Dr. Garcia notified.
[2019-11-09] MEDS ORDERED: CHLO25CA10 PO (07:49)
[2019-11-09 07:50] VITALS: BP 142/99
== END 2019-11-09 07:50 | disposition home or self-care (01) ==
LOC: EDUNIT# 06:16 → ER 06:18
DX: F10.239 Alcohol dependence with withdrawal, unspecified (principal); F41.9 Anxiety disorder, unspecified; J45.909 Unspecified asthma, uncomplicated; K21.9 Gastro-esophageal reflux disease without esophagitis; M54.5 Low back pain; R07.9 Chest pain, unspecified; M25.511 Pain in right shoulder; M25.512 Pain in left shoulder; Y90.0 Blood alcohol level of less than 20 mg/100 ml
CPT/HCPCS: 71045; 80053; 80306; 81000; 83690; 83880; 84443; 84484; 85025; 85379; G0480; 36415; 80320

== ENCOUNTER 2020-07-16 13:33 | Emergency (ER) | payer SELFPAY ==
[~2020-07-16] VITALS: Ht 182 cm; Wt 138.0 kg
[~2020-07-16 13:33] MED LIST changes: +CEPH500T PO; +CHLO25CA10 PO
[2020-07-16] MEDS ORDERED: LORazepam INJ 2 MG/ML (ATIVAN) VIAL IVP ONE (13:45)
--- NOTE | 2020-07-16 13:50 | ED Psychosocial ---
General Chief Complaint: Psych/Social Disorder Stated Complaint: CP, SOB Nursing Triage Note: AMBULATED TO ROOM 10 WITH COMPLAINTS OF CHEST PAIN, SOA, AND FEELING AXIOUS. STATES HE WOKE UP THIS WAY. HAS A HX OF ANXIETY AND HAS BEEN PRESCRIBED MEDS FOR IT BUT WILL NOT TAKE THEM BECUASE IT MAKES HIM SLEEPY. Source: patient Exam Limitations: no limitations History of Present Illness Date Seen by Provider: Jul 16, 2020 Time Seen by Provider: 13:48 Initial Comments To ER with reports of chest pain shortness of breath and anxiety onset this morning. He states he is "freaking out" worried that something may be wrong with his heart. He does have a history of anxiety and has a prescription for hydroxyzine but does not like taking it because it makes him excessively sleepy. He also takes Zoloft daily. He drinks some mixed drinks last night socially. He smokes 1 pack of cigarettes per day. Timing/Duration: this morning Severity: moderate Associated Symptoms: anxiety Allergies and Home Medications Allergies Coded Allergies: No Known Drug Allergies (Unverified , 02/03/11) Home Medications Albuterol Sulfate 1 Puff Puff, 2 PUFF IH Q4H PRN for SHORTNESS OF BREATH 1 PUFF = 90 MCG Prescribed by: DANUTA MARLOW on 06/30/19 1036 Cephalexin 500 Mg Tablet, 500 MG PO QID Prescribed by: DICK MAIN on 06/21/20 0311 Chlordiazepoxide HCl 25 Mg Capsule, 25 MG PO Q6H PRN for ANXIETY Prescribed by: CAROL MOTT on 11/09/19 0749 Lansoprazole 15 Mg Capsule., Unknown Dose PO DAILY, (Reported) Ondansetron 4 Mg Tab.rapdis, 4 MG PO Q6H PRN for NAUSEA/VOMITING Prescribed by: DICK MAIN on 05/23/19 0430 Patient Home Medication List Home Medication List Reviewed: Yes Review of Systems Constitutional: see HPI EENTM: see HPI Respiratory: no symptoms reported Cardiovascular: no symptoms reported Genitourinary: no symptoms reported Musculoskeletal: no symptoms reported Skin: no symptoms reported Psychiatric/Neurological: No Symptoms Reported Past Nhjxhhz-Poijzy-Hakoec Hx Patient Social History Alcohol Use: Occasionally Uses Number of Drinks Today: FF Alcohol Beverage of Choice: Vodka Smoking Status: Current Everyday Smoker Recent Infectious Disease Expo: No Recent Hopitalizations: No Immunizations Up To Date Tetanus Booster (TDap): Less than 5yrs PED Vaccines UTD: Yes Seasonal Allergies Seasonal Allergies: No Past Medical History Surgeries: Yes Orthopedic Respiratory: Yes Asthma Cardiac: No Neurological: No Genitourinary: No Gastrointestinal: Yes Gastroesophageal Reflux, Ulcer Musculoskeletal: Yes (CHRONIC LEFT KNEE PAIN) Endocrine: No Cancer: No Psychosocial: Yes Anxiety Integumentary: No Blood Disorders: No Adverse Reaction/Blood Tranf: No Physical Exam Vital Signs - First Documented 07/16/20 13:40 Temp 37.0 Pulse 113 Resp 16 B/P (MAP) 182/110 (134) Pulse Ox 97 O2 Delivery Room Air Capillary Refill : Less Than 3 Seconds Height, Weight, BMI Height: 6'0" Weight: 260lbs. oz. 117.329840he; 41.00 BMI Method:Stated General Appearance: WD/WN, no apparent distress, obese Respiratory: no respiratory distress, no accessory muscle use Cardiovascular: no murmur, tachycardia Gastrointestinal: normal bowel sounds, soft Neurologic/Psychiatric: alert, normal mood/affect, oriented x 3 Thoughts/Hallucinations: normal thought pattern, no apparent hallucination Skin: normal color, warm/dry Progress/Results/Core Measures Results/Orders Lab Results Laboratory Tests Test 07/16/20 13:55 07/16/20 14:07 Range/Units White Blood Count 7.9 4.3-11.0 10^3/uL Red Blood Count 5.21 4.30-5.52 10^6/uL Hemoglobin 13.9 13.3-17.7 g/dL Hematocrit 43 40-54 % Mean Corpuscular Volume 83 80-99 fL Mean Corpuscular Hemoglobin 27 25-34 pg Mean Corpuscular Hemoglobin Concent 32 32-36 g/dL Red Cell Distribution Width 15.7 H 10.0-14.5 % Platelet Count 400 130-400 10^3/uL Mean Platelet Volume 8.9 L 9.0-12.2 fL Immature Granulocyte % (Auto) 0 % Neutrophils (%) (Auto) 65 42-75 % Lymphocytes (%) (Auto) 27 12-44 % Monocytes (%) (Auto) 8 0-12 % Eosinophils (%) (Auto) 0 0-10 % Basophils (%) (Auto) 1 0-10 % Neutrophils # (Auto) 5.1 1.8-7.8 10^3/uL Lymphocytes # (Auto) 2.1 1.0-4.0 10^3/uL Monocytes # (Auto) 0.6 0.0-1.0 10^3/uL Eosinophils # (Auto) 0.0 0.0-0.3 10^3/uL Basophils # (Auto) 0.0 0.0-0.1 10^3/uL Immature Granulocyte # (Auto) 0.0 0.0-0.1 10^3/uL Sodium Level 143 135-145 MMOL/L Potassium Level 3.6 3.6-5.0 MMOL/L Chloride Level 103 98-107 MMOL/L Carbon Dioxide Level 20 L 21-32 MMOL/L Anion Gap 20 H 5-14 MMOL/L Blood Urea Nitrogen 8 7-18 MG/DL Creatinine 1.00 0.60-1.30 MG/DL Estimat Glomerular Filtration Rate > 60 BUN/Creatinine Ratio 8 Glucose Level 125 H 70-105 MG/DL Calcium Level 8.9 8.5-10.1 MG/DL Corrected Calcium 8.5-10.1 MG/DL Magnesium Level 1.8 1.6-2.4 MG/DL Total Bilirubin 0.2 0.1-1.0 MG/DL Aspartate Amino Transf (AST/SGOT) 26 5-34 U/L Alanine Aminotransferase (ALT/SGPT) 52 0-55 U/L Alkaline Phosphatase 77 40-136 U/L Myoglobin 23.1 10.0-92.0 NG/ML Troponin I < 0.028 <0.028 NG/ML B-Type Natriuretic Peptide < 10.0 <100.0 PG/ML Total Protein 8.0 6.4-8.2 GM/DL Albumin 4.6 H 3.2-4.5 GM/DL My Orders Orders - JIHAN RODRIGUEZ OFFICE DIRECTOR Cbc With Automated Diff (07/16/20 13:39) Magnesium (07/16/20 13:39) Chest 1 View, Ap/Pa Only (07/16/20 13:39) Ekg Tracing (07/16/20 13:39) Comprehensive Metabolic Panel (07/16/20 13:39) Myoglobin Serum (07/16/20 13:39) Protime With Inr (07/16/20 13:39) Partial Thromboplastin Time (07/16/20 13:39) O2 (07/16/20 13:39) Monitor-Rhythm Ecg Trace Only (07/16/20 13:39) Lipid Panel (07/17/20 06:00) Ed Iv/Invasive Line Start (07/16/20 13:39) BNP (07/16/20 13:39) Fibrin Degradation Products (07/16/20 13:39) Troponin I (07/16/20 13:39) Lorazepam Injection (Ativan Injection) (07/16/20 13:45) Medications Given in ED Current Medications Medications Dose Ordered Sig/Jessica Route Start Time Stop Time Status Last Admin Dose Admin Lorazepam 1 mg ONCE ONCE IVP 07/16/20 13:45 07/16/20 13:46 DC 07/16/20 13:55 1 MG Vital Signs/I&O 07/16/20 13:40 Temp 37.0 Pulse 113 Resp 16 B/P (MAP) 182/110 (134) Pulse Ox 97 O2 Delivery Room Air Blood Pressure Mean: 134 Departure Impression Primary Impression: Anxiety Disposition: 01 HOME, SELF-CARE Condition: Stable Departure-Patient Inst. Decision time for Depature: 14:35 Referrals: [facility]/ (PCP) Primary Care Physician NELI GONZALEZ APRN (Family) Primary Care Physician Patient Instructions: Panic Disorder (DC) Add. Discharge Instructions: 1. Return to ER for any concerns 2. Follow-up with your doctor next week. All discharge instructions reviewed with patient and/or family. Voiced understanding. Scripts Lorazepam (Ativan) 0.5 Mg Tablet 0.5 MG PO BID PRN for ANXIETY for 7 Days, #10 TAB Prov: JIHAN RODRIGUEZ APRN 07/16/20 JIHAN RODRIGUEZ APRN Jul 16, 2020 13:49
[2020-07-16 14:05] LABS: BASOPHILS % (AUTO) 1 % (0-10); EOSINOPHILS % (AUTO) 0 % (0-10); HEMATOCRIT 43 % (40-54); HEMOGLOBIN 13.9 g/dL (13.3-17.7); LYMPHOCYTES # (AUTO) 2.1 10^3/uL (1.0-4.0); LYMPHOCYTES % (AUTO) 27 % (12-44); MEAN CORPUSCULAR HEMOGLOBIN 27 pg (25-34); MEAN CORPUSCULAR HGB CONC 32 g/dL (32-36); MEAN CORPUSCULAR VOLUME 83 fL (80-99); MEAN PLATELET VOLUME 8.9 fL (9.0-12.2); MONOCYTES # (AUTO) 0.6 10^3/uL (0.0-1.0); MONOCYTES % (AUTO) 8 % (0-12); NEUTROPHILS # (AUTO) 5.1 10^3/uL (1.8-7.8); NEUTROPHILS % (AUTO) 65 % (42-75); PLATELET COUNT 400 10^3/uL (130-400); WHITE BLOOD COUNT 7.9 10^3/uL (4.3-11.0)
[2020-07-16 14:11] LABS: ALBUMIN 4.6 GM/DL (3.2-4.5); CHLORIDE 103 MMOL/L (98-107); POTASSIUM 3.6 MMOL/L (3.6-5.0); SODIUM 143 MMOL/L (135-145)
[2020-07-16 14:13] LABS: CALCIUM 8.9 MG/DL (8.5-10.1)
[2020-07-16 14:14] LABS: GLUCOSE 125 MG/DL (70-105)
[2020-07-16 14:15] LABS: CARBON DIOXIDE 20 MMOL/L (21-32)
[2020-07-16 14:16] LABS: BILIRUBIN,TOTAL 0.2 MG/DL (0.1-1.0)
[2020-07-16 14:17] LABS: ALKALINE PHOSPHATASE 77 U/L (40-136); GFR ESTIMATED > 60
[2020-07-16 14:18] LABS: BUN/CREATININE RATIO 8
[2020-07-16 14:20] LABS: ALANINE AMINOTRANSFERASE 52 U/L (0-55); MAGNESIUM 1.8 MG/DL (1.6-2.4)
[2020-07-16 14:26] LABS: PROTHROMBIN TIME PATIENT 13.6 SEC (12.2-14.7)
[2020-07-16] MEDS ORDERED: LORA-404 PO (14:36)
--- NOTE | 2020-07-16 14:44 | Diagnostic Imaging Report ---
Portable erect AP chest at 1:54. Indication: Chest pain The heart size is within normal limits and stable when compared to 11/09/2019. The lungs are clear. There is no evidence for failure, pneumonia or for pleural effusion. The mediastinum is not widened. The osseous structures are intact. Impression: There is no evidence for active disease. Dictated by: Dictated on workstation # [id number]
[2020-07-16 15:40] VITALS: BP 155/87
== END 2020-07-16 15:40 | disposition home or self-care (01) ==
LOC: EDUNIT# 13:33 → ER 13:36
DX: F41.9 Anxiety disorder, unspecified (principal); J45.909 Unspecified asthma, uncomplicated; E66.9 Obesity, unspecified; K21.9 Gastro-esophageal reflux disease without esophagitis; Z68.41 Body mass index [BMI] 40.0-44.9, adult; F17.200 Nicotine dependence, unspecified, uncomplicated
CPT/HCPCS: 36415; 71045; 80053; 83735; 83874; 83880; 84484; 85025; 85379; 85610; 85730; 93005; 93041

== ENCOUNTER 2021-01-06 13:06 | Emergency (ER) | payer SELFPAY ==
[~2021-01-06] VITALS: Ht 182.2 cm; Wt 118.0 kg
[~2021-01-06 13:06] MED LIST changes: +LORA-404 PO
[2021-01-06 13:51] LABS: BASOPHILS # (AUTO) 0.1 10^3/uL (0.0-0.1); BASOPHILS % (AUTO) 1 % (0-10); EOSINOPHILS # (AUTO) 0.1 10^3/uL (0.0-0.3); EOSINOPHILS % (AUTO) 1 % (0-10); HEMATOCRIT 41 % (40-54); HEMOGLOBIN 13.6 g/dL (13.3-17.7); LYMPHOCYTES # (AUTO) 2.5 10^3/uL (1.0-4.0); LYMPHOCYTES % (AUTO) 23 % (12-44); MEAN CORPUSCULAR HEMOGLOBIN 29 pg (25-34); MEAN CORPUSCULAR HGB CONC 33 g/dL (32-36); MEAN CORPUSCULAR VOLUME 89 fL (80-99); MEAN PLATELET VOLUME 9.4 fL (9.0-12.2); MONOCYTES # (AUTO) 0.7 10^3/uL (0.0-1.0); MONOCYTES % (AUTO) 6 % (0-12); NEUTROPHILS # (AUTO) 7.1 10^3/uL (1.8-7.8); NEUTROPHILS % (AUTO) 68 % (42-75); PLATELET COUNT 351 10^3/uL (130-400); WHITE BLOOD COUNT 10.5 10^3/uL (4.3-11.0)
[2021-01-06 14:00] LABS: ALBUMIN 4.3 GM/DL (3.2-4.5)
[2021-01-06 14:01] LABS: POTASSIUM 3.5 MMOL/L (3.6-5.0)
[2021-01-06 14:02] LABS: CALCIUM 9.3 MG/DL (8.5-10.1)
[2021-01-06 14:03] LABS: TOTAL PROTEIN 7.6 GM/DL (6.4-8.2)
[2021-01-06 14:05] LABS: BILIRUBIN,TOTAL 0.3 MG/DL (0.1-1.0)
[2021-01-06 14:07] LABS: CREATININE SERUM 0.76 MG/DL (0.60-1.30)
--- NOTE | 2021-01-06 14:12 | ED General ---
General Chief Complaint: Rect Problems Stated Complaint: BLOODY STOOLS,WEAKNESS Source of Information: Patient Exam Limitations: No Limitations History of Present Illness Date Seen by Provider: Jan 06, 2021 Time Seen by Provider: 13:50 Initial Comments Here with report of bloody stools x2 today. Does admit to having hard stools and hemorrhoids. States he was off his Metformin for a while and then back on. That causes him to have more bowel movements. Also admits to being a functional alcoholic. Does have history of reflux and hiatal hernia. That is well controlled with 1 dose of acid reducing medicine daily. Denies nausea or vomiting. Denies significant abdominal pain. States that bowel movement today he noted a little blood in the stool and then when he wiped. Second bowel movement had similar results and he noticed a clot on the toilet paper. He is concerned because of the alcoholism. He is adopted so has known family history. Timing/Duration: 4-6 Hours Severity: Mild Associated Systoms: No Chest Pain, No Fever/Chills, No Nausea/Vomiting, No Shortness of Air, No Weakness Allergies and Home Medications Allergies Coded Allergies: No Known Drug Allergies (Unverified , 02/03/11) Patient Home Medication List Home Medication List Reviewed: Yes Albuterol Sulfate (Proair Hfa) 1 Puff Puff, 2 PUFF IH Q4H PRN for SHORTNESS OF BREATH Prescribed by: DANUTA MARLOW on 06/30/19 1036 Cephalexin (Cephalexin) 500 Mg Tablet, 500 MG PO QID Prescribed by: DICK MAIN on 06/21/20 0311 Chlordiazepoxide HCl (Chlordiazepoxide HCl) 25 Mg Capsule, 25 MG PO Q6H PRN for ANXIETY Prescribed by: CAROL MOTT on 11/09/19 0749 Lansoprazole (Prevacid) 15 Mg Capsule.dr, Unknown Dose PO DAILY, (Reported) Entered as Reported by: THOM DIAZ on 04/18/14 190 Lorazepam (Ativan) 0.5 Mg Tablet, 0.5 MG PO BID PRN for ANXIETY Prescribed by: JIHAN RODRIGUEZ on 07/16/20 1439 Ondansetron (Ondansetron Odt) 4 Mg Tab.rapdis, 4 MG PO Q6H PRN for NAUSEA/VOMITING Prescribed by: DICK MAIN on 05/23/19 0430 Review of Systems Review of Systems Constitutional: see HPI; No chills, No fever EENTM: No nose congestion, No throat pain Respiratory: No cough, No short of breath Cardiovascular: no symptoms reported Gastrointestinal: see HPI, constipation; No diarrhea Genitourinary: no symptoms reported Musculoskeletal: no symptoms reported Psychiatric/Neurological: Denies Weakness Past Ejbsztx-Pukqnn-Gyerqj Hx Patient Social History Tobacco Use?: Yes Tobacco type used: Cigarettes Smoking Status: Current Everyday Smoker Use of E-Cig and/or Vaping dev: No Substance use?: No Alcohol Use?: Yes Alcohol type: Hard Liquor Alcohol Frequency: Daily Pt feels they are or have been: No Immunizations Up To Date Tetanus Booster (TDap): Less than 5yrs PED Vaccines UTD: Yes Influenza Vaccine Up-to-Date: No; Not Current Seasonal Allergies Seasonal Allergies: No Past Medical History Surgeries: Yes Orthopedic Respiratory: Yes Asthma Cardiac: No Neurological: No Genitourinary: No Gastrointestinal: Yes Gastroesophageal Reflux, Ulcer Musculoskeletal: Yes (CHRONIC LEFT KNEE PAIN) Endocrine: No Cancer: No Psychosocial: Yes Anxiety Integumentary: No Blood Disorders: No Adverse Reaction/Blood Tranf: No Family Medical History Reviewed Nursing Family Hx Physical Exam Vital Signs Vital Signs - First Documented 01/06/21 13:59 Temp 36.4 Pulse 120 Resp 20 B/P (MAP) 194/119 (144) Pulse Ox 98 O2 Delivery Room Air Capillary Refill : Height, Weight, BMI Height: 6'0" Weight: 260lbs. oz. 117.534022ks; 41.00 BMI Method:Stated General Appearance: No Apparent Distress, WD/WN Neck: Non Tender, Supple Respiratory: Lungs Clear, Normal Breath Sounds Cardiovascular: Regular Rate, Rhythm, No Murmur Gastrointestinal: No Pulsatile Mass, Non Tender, Soft Rectal: Heme Positive Stool, Hemorrhoids (Anterior midline with 1 cm hemorrhoid that does have a little blood noted.), Other (I did perform rectal exam. Patient was not able to tolerate that well. No obvious mass noted. No gross blood but was heme positive.) Extremity: Normal Range of Motion, Non Tender Neurologic/Psychiatric: Alert, Oriented x3 Skin: Normal Color, Warm/Dry Progress/Results/Core Measures Suspected Sepsis SIRS Temperature: Pulse: Respiratory Rate: Laboratory Tests 01/06/21 13:31: White Blood Count 10.5 Blood Pressure / Mean: Laboratory Tests 01/06/21 13:31: Creatinine 0.76, Platelet Count 351, Total Bilirubin 0.3 Results/Orders Lab Results Laboratory Tests Test 01/06/21 13:31 Range/Units White Blood Count 10.5 4.3-11.0 10^3/uL Red Blood Count 4.66 4.30-5.52 10^6/uL Hemoglobin 13.6 13.3-17.7 g/dL Hematocrit 41 40-54 % Mean Corpuscular Volume 89 80-99 fL Mean Corpuscular Hemoglobin 29 25-34 pg Mean Corpuscular Hemoglobin Concent 33 32-36 g/dL Red Cell Distribution Width 14.8 H 10.0-14.5 % Platelet Count 351 130-400 10^3/uL Mean Platelet Volume 9.4 9.0-12.2 fL Immature Granulocyte % (Auto) 1 % Neutrophils (%) (Auto) 68 42-75 % Lymphocytes (%) (Auto) 23 12-44 % Monocytes (%) (Auto) 6 0-12 % Eosinophils (%) (Auto) 1 0-10 % Basophils (%) (Auto) 1 0-10 % Neutrophils # (Auto) 7.1 1.8-7.8 10^3/uL Lymphocytes # (Auto) 2.5 1.0-4.0 10^3/uL Monocytes # (Auto) 0.7 0.0-1.0 10^3/uL Eosinophils # (Auto) 0.1 0.0-0.3 10^3/uL Basophils # (Auto) 0.1 0.0-0.1 10^3/uL Immature Granulocyte # (Auto) 0.1 0.0-0.1 10^3/uL Sodium Level 139 135-145 MMOL/L Potassium Level 3.5 L 3.6-5.0 MMOL/L Chloride Level 103 98-107 MMOL/L Carbon Dioxide Level 21 21-32 MMOL/L Anion Gap 15 H 5-14 MMOL/L Blood Urea Nitrogen 7 7-18 MG/DL Creatinine 0.76 0.60-1.30 MG/DL Estimat Glomerular Filtration Rate 119 BUN/Creatinine Ratio 9 Glucose Level 127 H 70-105 MG/DL Calcium Level 9.3 8.5-10.1 MG/DL Corrected Calcium 9.1 8.5-10.1 MG/DL Total Bilirubin 0.3 0.1-1.0 MG/DL Aspartate Amino Transf (AST/SGOT) 45 H 5-34 U/L Alanine Aminotransferase (ALT/SGPT) 45 0-55 U/L Alkaline Phosphatase 59 40-136 U/L C-Reactive Protein High Sensitivity 0.68 H 0.00-0.50 MG/DL Total Protein 7.6 6.4-8.2 GM/DL Albumin 4.3 3.2-4.5 GM/DL My Orders Orders - NATHAN BOWER MD Ed Iv/Invasive Line Start (01/06/21 13:42) Fecal Occult Bedside (01/06/21 13:42) Cbc With Automated Diff (01/06/21 13:42) Comprehensive Metabolic Panel (01/06/21 13:42) Hs C Reactive Protein (01/06/21 13:42) Vital Signs/I&O 01/06/21 13:59 Temp 36.4 Pulse 120 Resp 20 B/P (MAP) 194/119 (144) Pulse Ox 98 O2 Delivery Room Air Capillary Refill : Progress Note : Progress Note Seen and evaluated. IV, labs and rectal exam performed. Hemoccult is trace positive but not gross positive. This does appear to be more related to hemorrhoid and he does admit to some pain with bowel movements like fissures. We will check labs and reevaluate after. Monitor patient. 04/05/2005: No persistence of bleeding. Overall feeling better. Labs reviewed and do not show significant hemoglobin abnormality. Patient does need colonoscopy in the future. We have given him some alcohol treatment resources. We have encouraged him to follow-up with surgeon of his choice or Dr. Estrada as listed. Discharged home with return precautions. Patient verbalized understanding instructions and agreement with plan. Departure Impression Primary Impression: Hemorrhoids Qualified Codes: K64.9 - Unspecified hemorrhoids Additional Impression: Rectal bleeding Disposition: HOME, SELF-CARE Condition: Stable Departure-Patient Inst. Decision time for Depature: 15:07 Referrals: [facility] (PCP) Primary Care Physician NELI GONZALEZ APRN (Family) Primary Care Physician HUGH ESTRADA DO Patient Instructions: Bloody Stools, Adult (DC), Constipation, Adult (DC), Hemorrhoids (DC) Add. Discharge Instructions: All discharge instructions reviewed with patient and/or family. Voiced understanding. You may use mytd-mpa-airdvec medications such as preparation H or preparation HC per package directions. It is important that you follow-up with the surgeon listed or of your choice for recheck and further evaluation and for evaluation for colonoscopy to further check on the rectal bleeding. You may follow-up with your doctor as well. For alcohol cessation help, you may call [facility] and/or [facility] as they both have excellent programs to assist with quitting alcohol. The addiction treatment center in [place], [place] is also an excellent resource. Return for worse pain, fever, vomiting, weakness, breathing problems or other concerns as needed. To decrease the difficulty with stool, you should initiate MiraLAX or the generic 1 capful twice daily for the next 3 days and then 1 capful daily thereafter to achieve normal stools. You may increase or decrease the dose to keep stools soft and in normal range. NATHAN BOWER MD Jan 06, 2021 14:12
[2021-01-06] MEDS ORDERED: HYDROmorphone 2 MG/ML VIAL (DILAUDID) IV ONE (15:00)
[2021-01-06 15:29] VITALS: BP 181/102
== END 2021-01-06 15:28 | disposition home or self-care (01) ==
LOC: EDUNIT# 13:06 → ER 13:07
DX: K64.9 Unspecified hemorrhoids (principal); F41.9 Anxiety disorder, unspecified; K21.9 Gastro-esophageal reflux disease without esophagitis; J45.909 Unspecified asthma, uncomplicated; F17.210 Nicotine dependence, cigarettes, uncomplicated; Z79.899 Other long term (current) drug therapy
CPT/HCPCS: 36415; 80053; 82274; 85025; 86141

== ENCOUNTER 2022-03-11 14:14 | Emergency (ER) | payer SELFPAY ==
[~2022-03-11] VITALS: Ht 182 cm; Wt 136.0 kg
[~2022-03-11 14:14] MED LIST changes: +ALBU8.5H6 IH; -RT-ALBUINH IH
--- NOTE | 2022-03-11 14:58 | ED General ---
General Chief Complaint: Cough/Cold/Flu Symptoms Stated Complaint: COUGH Nursing Triage Note: PT PRESENTS TO ED VIA POV FROM COUGH X 1 WEEK. PT REPORTS INITIALLY HE HAD N/V/D AND FEVER BUT THOSE HAVE SUBSIDED. PT REPORTS SOA WITH EXERTION. Source of Information: Patient Exam Limitations: No Limitations History of Present Illness Date Seen by Provider: Mar 11, 2022 Allergies and Home Medications Allergies Coded Allergies: No Known Drug Allergies (Unverified , 02/03/11) Patient Home Medication List Albuterol Sulfate (Ventolin Hfa) 1 Puff Puff, 2 PUFF IH Q4H PRN for SHORTNESS OF BREATH Prescribed by: DANUTA MARLOW on 06/30/19 1036 Cephalexin (Cephalexin) 500 Mg Tablet, 500 MG PO QID Prescribed by: DICK MAIN on 06/21/20 0311 Chlordiazepoxide HCl (Chlordiazepoxide HCl) 25 Mg Capsule, 25 MG PO Q6H PRN for ANXIETY Prescribed by: CAROL MOTT on 11/09/19 0749 Lansoprazole (Prevacid) 15 Mg Capsule.dr, Unknown Dose PO DAILY, (Reported) Entered as Reported by: THOM DIAZ on 04/18/14 1900 Lorazepam (Ativan) 0.5 Mg Tablet, 0.5 MG PO BID PRN for ANXIETY Prescribed by: JIHAN RODRIGUEZ on 07/16/20 1439 Ondansetron (Ondansetron Odt) 4 Mg Tab.rapdis, 4 MG PO Q6H PRN for NAUSEA/VOMITING Prescribed by: DICK MAIN on 05/23/19 0430 Past Dyulfnh-Nsqiiy-Otwprn Hx Patient Social History Tobacco Use?: Yes Tobacco type used: Cigarettes Smoking Status: Current Everyday Smoker Use of E-Cig and/or Vaping dev: No Substance use?: No Alcohol Use?: Yes Alcohol Frequency: Several times a month Pt feels they are or have been: No Immunizations Up To Date Tetanus Booster (TDap): Less than 5yrs PED Vaccines UTD: Yes Seasonal Allergies Seasonal Allergies: No Past Medical History Surgery/Hospitalization HX: Pmh: DM, HTN, HIGH CHOL Surgeries: Yes Orthopedic Respiratory: Yes Asthma Cardiac: No Neurological: No Genitourinary: No Gastrointestinal: Yes Gastroesophageal Reflux, Ulcer Musculoskeletal: Yes (CHRONIC LEFT KNEE PAIN) Endocrine: No Cancer: No Psychosocial: Yes Anxiety Integumentary: No Blood Disorders: No Adverse Reaction/Blood Tranf: No Physical Exam Vital Signs Vital Signs - First Documented 03/11/22 14:32 Temp 35.0 Pulse 123 Resp 18 B/P (MAP) 117/80 (92) Pulse Ox 98 Capillary Refill : Less Than 3 Seconds Height, Weight, BMI Height: 6'0" Weight: 260lbs. oz. 117.070467rp; 41.00 BMI Method:Stated Progress/Results/Core Measures Suspected Sepsis SIRS Temperature: Pulse: 123 Respiratory Rate: 18 Blood Pressure 117 /80 Mean: 92 Results/Orders Lab Results Laboratory Tests Test 03/11/22 14:55 Range/Units Influenza Type A (RT-PCR) Not Detected Not Detecte Influenza Type B (RT-PCR) Not Detected Not Detecte SARS-CoV-2 RNA (RT-PCR) Not Detected Not Detecte My Orders Orders - MARIE GODWIN APRN Covid 19 Inhouse Test (03/11/22 14:47) Influenza A And B By Pcr (03/11/22 14:47) Isolation Central Supply Req (03/11/22 14:47) Chest 1 View, Ap/Pa Only (03/11/22 14:47) Vital Signs/I&O 03/11/22 14:32 Temp 35.0 Pulse 123 Resp 18 B/P (MAP) 117/80 (92) Pulse Ox 98 Capillary Refill : Less Than 3 Seconds Blood Pressure Mean: 92 Departure Impression Primary Impression: Viral URI with cough Disposition: 01 HOME, SELF-CARE Condition: Stable Departure-Patient Inst. Decision time for Depature: 15:50 Referrals: [facility] (PCP) Primary Care Physician NELI GONZALEZ APRN (Family) Primary Care Physician Patient Instructions: Upper Respiratory Infection ED Scripts Dextromethorphan Polistirex (Delsym) 30 Mg/5 Ml Michelle.er.12h 60 MG PO BID for 5 Days, #100 ML 0 Refills Prov: MARIE GODWIN APRN 03/11/22 MARIE GODWIN APRN Mar 11, 2022 14:58
--- NOTE | 2022-03-11 15:10 | Diagnostic Imaging Report ---
INDICATION: Cough and fever. COMPARISON: 07/16/2020. FINDINGS: The lungs appear clear without focal airspace opacities or consolidation. There are no findings of an effusion. There is no evidence of a pneumothorax. Heart size and mediastinal contours appear appropriate. Pulmonary vascularity appears within normal limits. There is no acute or suspicious osseous abnormality demonstrated. IMPRESSION: No radiographic evidence of an acute cardiopulmonary process. Dictated by: Dictated on workstation # [id number]
[2022-03-11] MEDS ORDERED: DEXT30SU5 PO (15:50)
[2022-03-11 16:12] VITALS: BP 98/43
== END 2022-03-11 16:12 | disposition home or self-care (01) ==
LOC: EDUNIT# 14:14 → ER 14:16
DX: J06.9 Acute upper respiratory infection, unspecified (principal); F17.210 Nicotine dependence, cigarettes, uncomplicated; Z20.822 Contact with and (suspected) exposure to COVID-19; Z28.310 Unvaccinated for COVID-19
CPT/HCPCS: 71045; 87636

== ENCOUNTER 2022-09-19 12:45 | Emergency (ER) | payer SELFPAY ==
[~2022-09-19 12:45] MED LIST changes: +DEXT30SU5 PO
--- NOTE | 2022-09-19 13:19 | ED EENT ---
History of Present Illness General Chief Complaint: Eye Problems Stated Complaint: CONJUNCTIVITIS Nursing Triage Note: PT AMB TO RM 1 WITH CC OF R EYE REDDNESS AND ITCHING SINCE YESTERDAY. PT IS CONCERNED FOR "PINK EYE." Source: patient Exam Limitations: no limitations History of Present Illness Date Seen by Provider: Sep 19, 2022 Time Seen by Provider: 13:17 Initial Comments Patient is a 32-year-old male who presents ED for right eye swelling redness and drainage. Symptoms started yesterday with some itching and puffiness. Woke up this morning with purulent yellow drainage. Noted redness of the right eye. Denies of any visual changes or loss. No pain with eye movement. Denies of any specific injury. Denies applying any eye ointment or eye drops to help relieve the symptoms. Denies chest pain, cough, fever, runny nose. Does have a history of allergies and asthma. Denies of any foreign body or obvious chemical Allergies and Home Medications Allergies Coded Allergies: No Known Drug Allergies (Unverified , 02/03/11) Patient Home Medication List Home Medication List Reviewed: Yes Albuterol Sulfate (Ventolin Hfa) 1 Puff Puff, 2 PUFF IH Q4H PRN for SHORTNESS OF BREATH Prescribed by: DANUTA MARLOW on 06/30/19 1036 Cephalexin (Cephalexin) 500 Mg Tablet, 500 MG PO QID Prescribed by: DICK MAIN on 06/21/20 0311 Chlordiazepoxide HCl (Chlordiazepoxide HCl) 25 Mg Capsule, 25 MG PO Q6H PRN for ANXIETY Prescribed by: CAROL MOTT on 11/09/19 0749 Dextromethorphan Polistirex (Delsym) 30 Mg/5 Ml Michelle.er.12h, 60 MG PO BID Prescribed by: Justen Russo on 03/11/22 1550 Lansoprazole (Prevacid) 15 Mg Capsule.dr, Unknown Dose PO DAILY, (Reported) Entered as Reported by: THOM DIAZ on 04/18/14 1900 Lorazepam (Ativan) 0.5 Mg Tablet, 0.5 MG PO BID PRN for ANXIETY Prescribed by: JIHAN RODRIGUEZ on 07/16/20 1439 Ondansetron (Ondansetron Odt) 4 Mg Tab.rapdis, 4 MG PO Q6H PRN for NAUSEA /VOMITING Prescribed by: DICK MAIN on 05/23/19 0430 Polymyxin B Sulf/Trimethoprim (Polytrim Eye Drops) 10,000 Unit-1 Mg/Ml Drops, 1 DROP OP Q4H Prescribed by: YEFRI CHAVEZ on 09/19/22 1321 Review of Systems Review of Systems Constitutional: No chills, No diaphoresis, No fever, No malaise Eyes: Drainage; Denies Decreased Acuity; Inflammation Ears: Denies Dizziness, Denies Pain Nose: denies clots, denies congestion Mouth: denies loose teeth Respiratory: No cough, No dyspnea on exertion Cardiovascular: No chest pain Gastrointestinal: No abdominal pain, No diarrhea, No nausea, No vomiting Musculoskeletal: No back pain, No joint pain Skin: No change in color, No change in hair/nails Past Nohujga-Pmpbrs-Cdnrww Hx Patient Social History Tobacco Use?: Yes Tobacco type used: Cigarettes Smoking Status: Current Everyday Smoker Substance use?: No Alcohol Use?: No Pt feels they are or have been: No Immunizations Up To Date Tetanus Booster (TDap): Less than 5yrs PED Vaccines UTD: Yes Seasonal Allergies Seasonal Allergies: No Past Medical History Surgery/Hospitalization HX: Pmh: DM, HTN, HIGH CHOL Surgeries: Yes Orthopedic Respiratory: Yes Asthma Cardiac: No Neurological: No Genitourinary: No Gastrointestinal: Yes Gastroesophageal Reflux, Ulcer Musculoskeletal: Yes (CHRONIC LEFT KNEE PAIN) Endocrine: No Cancer: No Psychosocial: Yes Anxiety Integumentary: No Blood Disorders: No Adverse Reaction/Blood Tranf: No Physical Exam Vital Signs Vital Signs - First Documented 09/19/22 13:05 Pulse 115 Resp 18 B/P (MAP) 150/102 (118) Pulse Ox 96 O2 Delivery Room Air Height, Weight, BMI Height: 6'0" Weight: 260lbs. oz. 117.645401ra; 41.00 BMI Method:Stated General Appearance: WD/WN, no apparent distress Eyes: right eye conjunctival inflammation, right eye other (Right eye erythematous injection, right lower subconjunctival hemorrhage, mild purulent drainage. Mild eyelid swelling. No periorbital erythema. 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 Differential diagnosis of bacterial conjunctivitis, allergy conjunctivitis. History of allergies. Denies contacts. No visual loss. Eye drainage and swelling. On exam mild eyelid swelling without evidence of periorbital erythema. Extraocular movements intact without pain. Denies of any injury. Subconjunctival hemorrhage right lower eye with erythematous injection. Mild purulent drainage. Concern for conjunctivitis. No recent upper respiratory infection. Will discharge with Polytrim. Avoid rubbing the eye. Follow-up with PCP in 2 to 3 days for evalu ation. If any worsening symptoms return back to ED Impression Primary Impression: Eye infection Disposition: 01 HOME, SELF-CARE Condition: Stable Departure-Patient Inst. Decision time for Depature: 13:20 Referrals: [facility] ([place]/Family) Primary Care Physician Patient Instructions: Conjunctivitis ([place]) (DC) Scripts Polymyxin B Sulf/Trimethoprim (Polytrim Eye Drops) 10,000 Unit-1 Mg/Ml Drops 1 DROP OP Q4H for 7 Days, #1 EA Prov: PALLAVI CONRAD 09/19/22 Work/School Note: Work Release Form Date Seen in the Emergency Department: Sep 19, 2022 Return to Work: Sep 21, 2022 PALLAVI CONRAD Sep 19, 2022 13:19
[2022-09-19] MEDS ORDERED: POLY10DR OP (13:21)
[2022-09-19 13:38] VITALS: BP 150/102
== END 2022-09-19 13:42 | disposition home or self-care (01) ==
LOC: EDUNIT# 12:45 → ER 12:48
DX: H44.001 Unspecified purulent endophthalmitis, right eye (principal); H11.31 Conjunctival hemorrhage, right eye; F17.210 Nicotine dependence, cigarettes, uncomplicated; Z28.310 Unvaccinated for COVID-19
CPT/HCPCS: 99281

== ENCOUNTER 2022-11-01 14:20 | Emergency (ER) | payer SELFPAY ==
[~2022-11-01] VITALS: Ht 181 cm; Wt 137.0 kg
[~2022-11-01 14:20] MED LIST changes: +POLY10DR OP
[2022-11-01] MEDS ORDERED: LORazepam 0.5 MG (ATIVAN) TABLET PO STA (14:29)
--- NOTE | 2022-11-01 14:35 | ED Cardiac General ---
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 Chest pain started 1 hour ago. Located in his upper chest. Describes the pain as pressure and intermittent. Rates pain 3 out of 10. Associated shortness of breath. Tingling in his upper extremities. Patient reports similar symptoms in the past. History of anxiety that feels very similar. Patient denies of any increased stress or anything that led to this chest pain. Pain is not worse with exertion. No known cardiac history. History of hypertension. Patient does take atorvastatin for high cholesterol. Type II diabetic currently on metformin. Denies any nausea, vomiting, diarrhea, fever, chills, headache, dizziness. Patient appears anxious. Allergies and Home Medications Allergies Coded Allergies: No Known Drug Allergies (Unverified , 02/03/11) Patient Home Medication List Home Medication List Reviewed: Yes Albuterol Sulfate (Ventolin Hfa) 1 Puff Puff, 2 PUFF IH Q4H PRN for SHORTNESS OF BREATH Prescribed by: DANUTA MARLOW on 06/30/19 1036 Cephalexin (Cephalexin) 500 Mg Tablet, 500 MG PO QID Prescribed by: DICK MAIN on 06/21/20 0311 Chlordiazepoxide HCl (Chlordiazepoxide HCl) 25 Mg Capsule, 25 MG PO Q6H PRN for ANXIETY Prescribed by: CAROL MOTT on 11/09/19 0749 Dextromethorphan Polistirex (Delsym) 30 Mg/5 Ml Michelle.er.12h, 60 MG PO BID Prescribed by: Justen Russo on 03/11/22 1550 Lansoprazole (Prevacid) 15 Mg Capsule.dr, Unknown Dose PO DAILY, (Reported) Entered as Reported by: THOM DIAZ on 04/18/14 1900 Lorazepam (Ativan) 0.5 Mg Tablet, 0.5 MG PO BID PRN for ANXIETY Prescribed by: JIHAN RODRIGUEZ on 07/16/20 1439 Ondansetron (Ondansetron Odt) 4 Mg Tab.rapdis, 4 MG PO Q6H PRN for NAUSEA/VOMITING Prescribed by: DICK MAIN on 05/23/19 0430 Polymyxin B Sulf/Trimethoprim (Polytrim Eye Drops) 10,000 Unit-1 Mg/Ml Drops, 1 DROP OP Q4H Prescribed by: YEFRI CHAVEZ on 09/19/22 1321 Review of Systems Review of Systems Constitutional: No chills, No diaphoresis, No malaise, No weakness EENTM: No Double Vision, No Eye Pain Respiratory: Denies Cough, Denies Orthopnea Cardiovascular: Denies Chest Pain Gastrointestinal: Denies Abdominal Pain, Denies Constipated, Denies Diarrhea, Denies Nausea, Denies Vomiting Genitourinary: Denies Burning Musculoskeletal: No back pain, No joint pain Skin: No change in color, No change in hair/nails All Other Systems Reviewed Negative Unless Noted: Yes Past [id number] Hx Immunizations Up To Date Tetanus Booster (TDap): Less than 5yrs PED Vaccines UTD: Yes Seasonal Allergies Seasonal Allergies: No Past Medical History Surgery/Hospitalization HX: Pmh: DM, HTN, HIGH CHOL Surgeries: Yes Orthopedic Respiratory: Yes Asthma Cardiac: No Neurological: No Genitourinary: No Gastrointestinal: Yes Gastroesophageal Reflux, Ulcer Musculoskeletal: Yes (CHRONIC LEFT KNEE PAIN) Endocrine: No Cancer: No Psychosocial: Yes Anxiety Integumentary: No Blood Disorders: No Adverse Reaction/Blood Tranf: No Physical Exam Vital Signs Vital Signs - First Documented 11/01/22 14:26 Temp 36.9 Pulse 142 Resp 20 B/P (MAP) 161/119 (133) Pulse Ox 98 O2 Delivery Room Air Capillary Refill : Less Than 3 Seconds Height, Weight, BMI Height: 6'0" Weight: 260lbs. oz. 117.023403zd; 41.00 BMI Method:Stated General Appearance: No Apparent Distress, WD/WN HEENT: PERRL/EOMI, TMs Normal, Normal ENT Inspection, Pharynx Normal Neck: Full Range of Motion, Normal Inspection, Non Tender, Supple Respiratory: Chest Non Tender, Lungs Clear, Normal Breath Sounds, No Accessory Muscle Use Cardiovascular: No Edema, No Gallop, No JVD, No Murmur, Tachycardia Gastrointestinal: Normal Bowel Sounds, No Organomegaly, No Pulsatile Mass Extremity: Normal Capillary Refill, Normal Inspection, Normal Range of Motion Neurologic/Psychiatric: Alert, Oriented x3, No Motor/Sensory Deficits, Normal Mood/Affect, mother repairer II-XII Norm as Tested Skin: Normal Color, Warm/Dry Progress/Results/Core Measures Results/Orders Lab Results Laboratory Tests Test 11/01/22 14:43 Range/Units White Blood Count 10.8 4.3-11.0 10^3/uL Red Blood Count 4.80 4.30-5.52 10^6/uL Hemoglobin 12.8 L 13.3-17.7 g/dL Hematocrit 41 40-54 % Mean Corpuscular Volume 85 80-99 fL Mean Corpuscular Hemoglobin 27 25-34 pg Mean Corpuscular Hemoglobin Concent 31 L 32-36 g/dL Red Cell Distribution Width 18.6 H 10.0-14.5 % Platelet Count 352 130-400 10^3/uL Mean Platelet Volume 9.0 9.0-12.2 fL Immature Granulocyte % (Auto) 1 % Neutrophils (%) (Auto) 61 42-75 % Lymphocytes (%) (Auto) 27 12-44 % Monocytes (%) (Auto) 8 0-12 % Eosinophils (%) (Auto) 2 0-10 % Basophils (%) (Auto) 1 0-10 % Neutrophils # (Auto) 6.6 1.8-7.8 10^3/uL Lymphocytes # (Auto) 2.9 1.0-4.0 10^3/uL Monocytes # (Auto) 0.9 0.0-1.0 10^3/uL Eosinophils # (Auto) 0.2 0.0-0.3 10^3/uL Basophils # (Auto) 0.1 0.0-0.1 10^3/uL Immature Granulocyte # (Auto) 0.1 0.0-0.1 10^3/uL Prothrombin Time 14.6 12.2-14.7 SEC INR Comment 1.1 0.8-1.4 Activated Partial Thromboplast Time 26 24-35 SEC Urine Color DARK YELLOW Urine Clarity SLIGHTLY CLOUDY Urine pH 5.0 5-9 Urine Specific [place] 1.030 H 1.016-1.022 Urine Protein 4+ NEGATIVE Urine Glucose (UA) NEGATIVE NEGATIVE Urine Ketones TRACE H NEGATIVE Urine Nitrite NEGATIVE NEGATIVE Urine Bilirubin NEGATIVE NEGATIVE Urine Urobilinogen 0.2 < = 1.0 MG/DL Urine Leukocyte Esterase NEGATIVE NEGATIVE Urine RBC (Auto) TRACE H NEGATIVE Urine RBC 2-5 H /HPF Urine WBC 0-2 /HPF Urine Squamous Epithelial Cells RARE /HPF Urine Crystals PRESENT H /LPF Urine Amorphous Sediment MOD JONY URATES H /LPF Urine Bacteria TRACE /HPF Urine Casts PRESENT /LPF Urine Hyaline Casts 5-10 H /LPF Urine Mucus LARGE H /LPF Urine Culture Indicated NO Sodium Level 137 135-145 MMOL/L Potassium Level 3.3 L 3.6-5.0 MMOL/L Chloride Level 101 98-107 MMOL/L Carbon Dioxide Level 24 21-32 MMOL/L Anion Gap 12 5-14 MMOL/L Blood Urea Nitrogen 4 L 7-18 MG/DL Creatinine 0.83 0.60-1.30 MG/DL Estimat Glomerular Filtration Rate 118 BUN/Creatinine Ratio 5 Glucose Level 138 H 70-105 MG/DL Calcium Level 9.3 8.5-10.1 MG/DL Corrected Calcium 9.1 8.5-10.1 MG/DL Magnesium Level 1.9 1.6-2.4 MG/DL Total Bilirubin 0.6 0.1-1.0 MG/DL Aspartate Amino Transf (AST/SGOT) 104 H 5-34 U/L Alanine Aminotransferase (ALT/SGPT) 67 H 0-55 U/L Alkaline Phosphatase 63 40-136 U/L Troponin I < 0.028 <0.028 NG/ML Total Protein 8.2 6.4-8.2 GM/DL Albumin 4.2 3.2-4.5 GM/DL Lipase 32 8-78 U/L Urine Opiates Screen NEGATIVE NEGATIVE Urine Oxycodone Screen NEGATIVE NEGATIVE Urine Methadone Screen NEGATIVE NEGATIVE Urine Propoxyphene Screen NEGATIVE NEGATIVE Urine Barbiturates Screen NEGATIVE NEGATIVE Ur Tricyclic Antidepressants Screen NEGATIVE NEGATIVE Urine Phencyclidine Screen NEGATIVE NEGATIVE Urine Amphetamines Screen NEGATIVE NEGATIVE Urine Methamphetamines Screen NEGATIVE NEGATIVE Urine Benzodiazepines Screen NEGATIVE NEGATIVE Urine Cocaine Screen NEGATIVE NEGATIVE Urine Cannabinoids Screen NEGATIVE NEGATIVE My Orders Orders - PALLAVI CONRAD Ekg Tracing (11/01/22 14:25) Cbc With Automated Diff (11/01/22 14:29) Magnesium (11/01/22 14:29) Chest 1 View, Ap/Pa Only (11/01/22 14:29) Comprehensive Metabolic Panel (11/01/22 14:29) Ed Iv/Invasive Line Start (11/01/22 14:29) Lipase (11/01/22 14:29) Troponin I [place] (11/01/22 14:29) Lorazepam Tablet (Ativan Tablet) (11/01/22 14:29) Drug Screen Stat (Urine) (11/01/22 14:30) Ua Culture If Indicated (11/01/22 14:30) Partial Thromboplastin Time (11/01/22 14:36) Protime With Inr (11/01/22 14:36) Ekg Tracing (11/01/22 15:15) Vital Signs/I&O 11/01/22 11/01/22 14:26 16:33 Temp 36.9 Pulse 142 92 Resp 20 B/P (MAP) 161/119 (133) 141/104 Pulse Ox 98 O2 Delivery Room Air Blood Pressure Mean: 133 Comment Sinus tachycardia, 114 bpm, QRS duration 97 MS, QTc 401 MS. Departure Communication (PCP) Reviewed previous ER visits, H&P, lab testing. Patient is a 32-year-old male who presents ED with upper chest pain. This started 1 hour before arrival. Patient was sitting at home. Pain is intermittent. Described as pressure rates 3 out of 10. No known cardiac history. History of anxiety and unsure if this is secondary to a panic attack versus cardiac. Differential diagnosis panic attack, ACS, pericarditis, pneumonia. He was tachycardic. Patient appeared anxious. Tingling in his upper extremities. No vomiting diarrhea. History of hypertension. Currently on atorvastatin. Does not currently take any medication for his anxiety as he states it makes him feel sleepy. Does take a half a trazodone at night. Initial EKG showed a flutter tachycardia with rapid ventricular response. Appears to be a sinus tach. No history of a flutter or A -fib. Heart rate 136 bpm on arrival. Patient did receive a dose of Ativan 1 mg rechecked his heart rate and EKG which did note sinus tachycardia on EKG with a heart rate in the 116 s. Cardiac work-up was initiated. CBC, CMP grossly unremarkable besides a potassium of 3.3, AST 104, ALT 67. Toxicology unremarkable. Heart rate did continue to improve. Chest pressure improved. States he is feeling much better at this time. No recent travels or surgeries. Previous visit patient has been tachycardic as well. No known family history of sudden cardiac . Patient blood pressure continue to prove as he was initially hypertensive 161/119. Improved to 133/91. Remained asymptomatic. Concern for panic attack. Heart score of 2. No recent travels or surgeries . not necessarily concern for cardiac in nature however I do recommend outpatient follow-up at this time. Refused IV fluids, His specific gravity was slightly high, red blood cells in his urine, trace ketones. Likely mildly dehydrated. Patient does not appear toxic or septic. Vital signs remained stable. Follow- up your PCP in 2 to 3 days for reevaluation. States he has a follow-up with his mental health next month. Does not want any further treatment at this time. Heart rate at discharge was 90. Impression Primary Impression: Chest pain Disposition: HOME, SELF-CARE Condition: Stable Departure-Patient Inst. Decision time for Depature: 16:03 Referrals: [facility] [place] (PCP/Family) Primary Care Physician JASON CARRERO MD Patient Instructions: Chest Pain, Adult ED Add. Discharge Instructions: Recommend resting. Follow-up with your primary care physician. If any worsening symptoms return back to ED. All discharge instructions reviewed with patient and/or family. Voiced understanding. PALLAVI CONRAD Nov 01, 2022 14:35
[2022-11-01 14:53] LABS: BASOPHILS # (AUTO) 0.1 10^3/uL (0.0-0.1); BASOPHILS % (AUTO) 1 % (0-10); EOSINOPHILS # (AUTO) 0.2 10^3/uL (0.0-0.3); EOSINOPHILS % (AUTO) 2 % (0-10); HEMATOCRIT 41 % (40-54); HEMOGLOBIN 12.8 g/dL (13.3-17.7); LYMPHOCYTES # (AUTO) 2.9 10^3/uL (1.0-4.0); LYMPHOCYTES % (AUTO) 27 % (12-44); MEAN CORPUSCULAR HEMOGLOBIN 27 pg (25-34); MEAN CORPUSCULAR HGB CONC 31 g/dL (32-36); MEAN CORPUSCULAR VOLUME 85 fL (80-99); MONOCYTES # (AUTO) 0.9 10^3/uL (0.0-1.0); MONOCYTES % (AUTO) 8 % (0-12); NEUTROPHILS # (AUTO) 6.6 10^3/uL (1.8-7.8); NEUTROPHILS % (AUTO) 61 % (42-75); PLATELET COUNT 352 10^3/uL (130-400); WHITE BLOOD COUNT 10.8 10^3/uL (4.3-11.0)
--- NOTE | 2022-11-01 15:04 | Diagnostic Imaging Report ---
INDICATION: Chest pain. COMPARISON: 03/11/2022. FINDINGS: Upright frontal chest is normal. The lungs clear. There is no failure, effusion or pneumothorax. IMPRESSION: Stable negative frontal chest. Dictated by: Dictated on workstation # [id number]
[2022-11-01 15:06] LABS: INR 1.1 (0.8-1.4); PROTHROMBIN TIME PATIENT 14.6 SEC (12.2-14.7)
[2022-11-01 15:07] LABS: CLARITY,URINE SLIGHTLY CLOUDY; COLOR,URINE DARK YELLOW; GLUCOSE, URINE (UA) NEGATIVE (NEGATIVE); PROTEIN,URINE 4+ (NEGATIVE)
[2022-11-01 15:08] LABS: AMORPHOUS SEDIMENT,UR MOD AMOR URATES /LPF; BACTERIA,URINE TRACE /HPF; BILIRUBIN,URINE NEGATIVE (NEGATIVE); KETONES,URINE TRACE (NEGATIVE); LEUKOCYTE ESTERASE ,URINE NEGATIVE (NEGATIVE); NITRITE,URINE NEGATIVE (NEGATIVE); SQUAMOUS EPITHELIAL CELL,UR RARE /HPF; WBC,URINE 0-2 /HPF
[2022-11-01 15:13] LABS: ALBUMIN 4.2 GM/DL (3.2-4.5); AMPHETAMINE SCREEN, URINE NEGATIVE (NEGATIVE); BARBITURATE SCREEN URINE NEGATIVE (NEGATIVE); BENZODIAZEPINES SCREEN URINE NEGATIVE (NEGATIVE); CANNABINOID SCREEN, URINE NEGATIVE (NEGATIVE); COCAINE SCREEN URINE NEGATIVE (NEGATIVE); METHADONE STAT NEGATIVE (NEGATIVE); OPIATE SCREEN URINE NEGATIVE (NEGATIVE); OXYCODONE STAT NEGATIVE (NEGATIVE); TRICYCLIC ANTIDEPRESSANTS SCRE NEGATIVE (NEGATIVE)
[2022-11-01 15:14] LABS: CHLORIDE 101 MMOL/L (98-107); POTASSIUM 3.3 MMOL/L (3.6-5.0); PROPOXYPHENE STAT NEGATIVE (NEGATIVE); SODIUM 137 MMOL/L (135-145)
[2022-11-01 15:15] LABS: CALCIUM 9.3 MG/DL (8.5-10.1)
[2022-11-01 15:16] LABS: GLUCOSE 138 MG/DL (70-105); TOTAL PROTEIN 8.2 GM/DL (6.4-8.2)
[2022-11-01 15:17] LABS: CARBON DIOXIDE 24 MMOL/L (21-32)
[2022-11-01 15:18] LABS: BILIRUBIN,TOTAL 0.6 MG/DL (0.1-1.0)
[2022-11-01 15:19] LABS: ALKALINE PHOSPHATASE 63 U/L (40-136)
[2022-11-01 15:20] LABS: CREATININE SERUM 0.83 MG/DL (0.60-1.30); GFR ESTIMATED 118
[2022-11-01 15:21] LABS: BUN/CREATININE RATIO 5
[2022-11-01 15:22] LABS: MAGNESIUM 1.9 MG/DL (1.6-2.4)
[2022-11-01 15:23] LABS: ALANINE AMINOTRANSFERASE 67 U/L (0-55); LIPASE 32 U/L (8-78)
[2022-11-01 16:33] VITALS: BP 141/104
== END 2022-11-01 16:36 | disposition home or self-care (01) ==
LOC: EDUNIT# 14:20 → ER 14:22
DX: R07.89 Other chest pain (principal); R20.2 Paresthesia of skin; R00.0 Tachycardia, unspecified; E11.9 Type 2 diabetes mellitus without complications; E78.00 Pure hypercholesterolemia, unspecified; Z79.84 Long term (current) use of oral hypoglycemic drugs; Z79.899 Other long term (current) drug therapy
CPT/HCPCS: 36415; 71045; 80053; 80306; 81000; 83690; 83735; 84484; 85025; 85610; 85730; 93005